=== PATIENT | male | born 1980 | race Caucasian/White ===

== ENCOUNTER 2020-02-04 16:39 | Emergency (ER) | payer OTHER, SELFPAY ==
[2020-02-04 16:53] VITALS: BP 156/88; PULSE 91; RESP 18; TEMP 36.6; O2SAT 98; BMI 37.3
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
[2020-02-04 18:07] VITALS: BP 156/88; PULSE 91; RESP 18; TEMP 36.6; O2SAT 98
== END 2020-02-04 18:08 | disposition home or self-care (01) ==
PROVIDERS: Emergency Provider Nurse Practitioner Family; PCP Internal Medicine
DX: S81.812A Laceration without foreign body, left lower leg, initial encounter (principal); Z23 Encounter for immunization; W31.2XXA Contact with powered woodworking and forming machines, initial encounter; Y92.017 Garden or yard in single-family (private) house as the place of occurrence of the external cause
CPT/HCPCS: 12002; 90471; 90714; 99201

== ENCOUNTER → 2020-02-07 09:47 | Outpatient (CLI) | payer OTHER, SELFPAY ==
[2020-02-07 10:51] LABS: Basophils % 0.4 % (0.1-2.0); Eosinophils # 0.2 K/mm3 (0.0-0.4); Eosinophils % 2.2 % (0.1-12.0); Hemoglobin 14.9 g/dL (14.1-18.0); Lymphocytes # 2.7 K/mm3 (0.7-4.5); Lymphocytes % 38.8 % (10-50); Mean Corpuscular HGB Conc 33.8 g/dL (31.8-35.4); Mean Corpuscular Volume 97.6 fl (80-94); Mean Platelet Volume 7.4 fl (7.4-10.4); Monocytes # 0.6 K/mm3 (0.1-1.0); Monocytes % 8.7 % (1.7-9.3); Neutrophils # 3.5 K/mm3 (1.8-7.8); Platelet Count 301 K/mm3 (142-424); Red Blood Count 4.51 M/mm3 (4.60-6.20)
[2020-02-07 11:38] LABS: Chloride 100 mmol/L (98-107); Sodium 140 mmol/L (136-145)
[2020-02-07 11:39] LABS: Potassium 4.6 mmoL/L (3.5-5.1)
[2020-02-07 11:41] LABS: Alanine Aminotransferase 59 U/L (12-78); Albumin Level 4.6 g/dl (3.5-5.0); Albumin/Globulin Ratio 1.4 (1.1-1.8); Alkaline Phosphatase 50 U/L (38-126); Anion Gap 15.6 mEq/L (5-15); Aspartate Amino Transferase 39 U/L (17-59); Bilirubin,Total 0.7 mg/dl (0.2-1.3); Blood Urea Nitrogen 20 mg/dl (9-20); Carbon Dioxide 29 mmol/L (22.0-30.0); Cholesterol 215 mg/dl (140-200); Estimated Glomerular Filt Rate 75 ml/min (>60); GFR (African American) 91 ML/MIN (>60); Globulin 3.2 g/dL (1.3-3.2); Total Protein,Serum 7.8 g/dl (6.3-8.2); Triglycerides 159 mg/dl (30-150); VLDL Cholesterol 32 mg/dL (0-40)
[2020-02-07 11:42] LABS: Calcium 9.5 mg/dl (8.4-10.2); Chol/HDL Ratio 4.9 (1-3.5); Glucose 100 mg/dl (74-100); HDL Cholesterol 44 mg/dl (40-60)
[2020-02-07 11:53] LABS: Direct LDL Cholesterol 142.43 mg/dL (100-129)
[2020-02-07 12:13] LABS: Thyroid Stimulating Hormone 1.01 uIU/mL (0.465-4.68)
== END ==
PROVIDERS: Visit Provider Family Medicine
DX: I10 Essential (primary) hypertension (principal)
CPT/HCPCS: 36415; 80053; 80061; 84443; 85025

== ENCOUNTER → 2020-02-11 15:18 | Outpatient (CLI) | payer OTHER, SELFPAY ==
[2020-02-13 10:55] LABS: Covid-19 Nasal PCR Sendout Lex Not Detected
== END ==
PROVIDERS: PCP Family Medicine; Visit Provider Family Medicine
DX: Z03.818 Encounter for observation for suspected exposure to other biological agents ruled out (principal)
CPT/HCPCS: U0004

== ENCOUNTER 2023-10-27 08:54 | Emergency (ER) | payer OTHER, SELFPAY ==
--- OUTSIDE RECORDS SUMMARY | 2023-10-27 09:00 | XMS_ITS ---
Author Organization [facility] Address [address] [place] [id number] Care Team Providers Care Disaster Recovery Specialist Name Role Phone Avinash Knight Primary Care Provider ALLERGIES No Known Allergies RESULTS Component Value Reference Range Notes P-Comprehensive Metabolic Pa trevon (CMP) Reviewed date:09/23/2023 12:32:32 PM Interpretation:alt 79, ast 49 Performing Lab: Notes/Report: Test performed by [facility] [address] [place] [address] , [address], [place] [address] Daniel Cuellar MD, Superintendent Quarry CLIA: [id number] Sodium 136 135-145 mEq/L Potassium 4.5 3.5-5.3 mEq/L Chloride 100 97-108 mEq/L CO2 22 22-32 mEq/L Glucose 85 65-99 mg/dL BUN 12 6-20 mg/dL Creatinine 1.01 0.70-1.30 mg/dL Calcium 9.5 8.6-10.4 mg/dL eGFR by Creatinine 96 >59 mL/min/1.73m2 Protein 8.1 6.0-8.3 g/dL Albumin 4.8 3.5-5.3 g/dL Alkaline Phosphatase 76 40-129 IU/L ALT (SGPT) 79 <5-55 IU/L AST (SGOT) 49 <5-46 IU/L Bilirubin, Total 0.8 <0.2-1.2 mg/dL A/G Ratio 1.5 1.1-2.5 mg/dL P-T4 Free (thyroxine) Reviewed date:09/23/2023 12:32:32 PM Interpretation:Normal Performing Lab: Notes/Report: Test performed by [facility], [address], [place] [address] Daniel Cuellar MD, Superintendent Quarry CLIA: [id number] Thyroxine Free (free T4) 1.14 0.86-1.76 ng/dL P-Lipid Panel Reviewed date:09/23/2023 12:32:32 PM Interpretation:chol 243, chol/hdl 5.28, non-hdl 197, ldl 170, ldl/hdl 3.7 Performing Lab: Notes/Report: Test performed by [facility], [facility] [address] [place] [address] [address], [place] [address] Daniel Cuellar MD, Superintendent Quarry CLIA: [id number] Cholesterol 243 <200 mg/dL Triglycerides 137 <150 mg/dL HDL Cholesterol 46 >39 mg/dL Cholesterol / HDL Ratio 5.28 0.00-4.99 Ratio Non-HDL Cholesterol 197 <130 mg/dL LDL Cholesterol (Calculation) 170 <130 mg/dL LDL Cholesterol Levels* Less than 100 mg/dL Optimal 100 to 129 mg/dL Near Optimal/ Above Optimal 130 to 159 mg/dL Borderline High 160 to 189 mg/dL High 190 mg/dL and above Very High * Categories as recommended by the 2004 ATPIII guidelines LDL/HDL Ratio 3.7 <3.3 Ratio LDL Cholesterol Patient History Test Date: 09/13/2023 LDL Results: 170 Units: mg/dL % Change: - P-TSH Reviewed date:09/23/2023 12:32:32 PM Interpretation:Normal Performing Lab: Notes/Report: Test performed by [facility], [facility] , [address], [place] [address] Daniel Cuellar MD, Superintendent Quarry CLIA: [id number] TSH 1.25 0.43-5.25 mU/L REASON FOR VISIT biometric physical MEDICATIONS Medication SIG (Take, Route, Frequency, Duration) Notes Start Date End Date Status Medrol DIRECTED P.O. *Please review and pick correct strength-formula tion from [employer] options. If intended option is not shown, discontinue and re-order from Quick Search* 04/11/2021 Not-Taking ZyrTEC Allergy 10 MG 1 tab(s) orally once a day 09/09/2020 Active Amoxicillin 875 MG 1 tab(s) orally every 12 hours for 10 day(s) 04/11/2021 Not-Taking Bisoprolol Fumarate 5 MG 1 tab(s) orally once a day for 90 days Active Methocarbamol 500 MG 2 tab(s) qid Not-Taking oxyCODONE HCl 5 MG for 3 N ot-Taking Enoxaparin Sodium 30 MG/0.3ML as directed subcutaneously every 12 hours for 10 day(s) 09/09/2020 Not-Taking Neurontin 100 MG 2 cap(s) 3 times a day Not-Taking PROBLEMS Problem Type ICD Code Onset Dates Problem Status W/U Status Risk SNOMED Code Notes Problem Thyroid nodule (E04.1) Active confirmed Thyroid nodule (000264881) Problem BMI 38.0-38.9,cheryl lt (Z68.38) Active confirmed Obese class II (604697143816 105) VITAL SIGNS Weight 287 lbs 09/13/2023 Blood pressure systolic 124 mm Hg 09/13/19 24 Blood pressure diastolic 86 mm Hg 024 Heart Rate 71 /min 09/13/2023 Height 72 in 09/13/2023 BMI 38.92 kg/m2 09/13/2023 Encounters Encounter Location Date Provider Diagnosis [facility] [address] [facility] [address] [place] [id number] 09/13/2023 R Raffi Knight Essential hypertensi on I10 ; Dyslipidemia E78.5 ; Thyroid nodule E04.1 ; BMI 38.0-38.9,adult Z68.38 ; Well adult exam Z00.00 and Encounter for biometric screening Z00.8 ASSESSMENTS Encounter Date Diagnosis Assessment Notes Treatment Notes Treatment Clinical Notes 09/13/2023 Essential hypertension (ICD-10 - I10) 09/13/2023 Dyslipidemia (ICD-10 - E78.5) 09/13/2023 Thyroid nodule (ICD-10 - E04.1) Check labs. He will obtain a formal copy of the thyroid ultrasound report from his employer to review. Will likely plan on repeat ultrasound in 6 months pending review of labs and ultrasound report. 09/13/2023 BMI 38.0-38.9,adult (ICD-10 - Z68.38) 09/13/2023 Well adult exam (ICD-10 - Z00.00) 09/13/2023 Encounter for biometric screening (ICD-10 - Z00.8) PLAN OF TREATMENT Medication Medication Name Sig Start Date Stop Date Notes Bisoprolol Fumarate 5 MG 1 tab(s) orally once a day for 90 days Treatment Notes Assessment Notes Thyroid nodule Check labs. He will obtain a formal copy of the thyroid ultrasound report from his employer to review. Will likely plan on repeat ultrasound in 6 months pending review of labs and ultrasound report. Next Appt Details Follow Up: 6 Months, Reason: Progress Notes * Examination Category Sub-Category Detail Notes General Examination HEENT: unremarkable Heart: RSR Lungs: clear to auscultatio n Extremities: no leg edema General Appearance: NAD Neurologic Exam: no focal deficits Neck: Neck is stocky but s upple with no thyroid masses palpable. No thyroid tenderness. Oral cavity: no lesions, mucosa m oist and WNL, no erythema Chest: normal shape and exp ansion History and Physical Notes * HPI (History of Present Illness) Category Sub-Category Detail Notes HPI Patient is here today for an samir ual physical and labs. Pt is fasting today
--- OUTSIDE RECORDS SUMMARY | 2023-10-27 09:00 | XMS_ITS ---
Author Organization [facility] Address [address] [facility] [address] [place] [id number] Care Team Providers Care Brick Paver Name Role Phone Avinash Knight Primary Care Provider [phone] REASON FOR VISIT Test results Encounters Encounter Location Date Provider Diagnosis [facility] [address] [facility] [address] [place] [id number] 09/23/2023 Avinash Knight PLAN OF TREATMENT No Information
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
--- OUTSIDE RECORDS SUMMARY | 2023-10-27 09:00 | XMS_ITS ---
Author Organization [facility] Address [address] [place] [id number] Care Team Providers Care Resident Inspector Name Role Phone Avinash Knight Primary Care Provider Rah Zaidi Unavailable [phone] ALLERGIES No Known Allergies REASON FOR VISIT bilateral ear pressure MEDICATIONS Medication SIG (Take, Route, Frequency, Duration) Notes Start Date End Date Status Bisoprolol Fumarate 5 MG 1 tab(s) orally once a day for 90 days Active ZyrTEC Allergy 10 MG 1 tab(s) orally onc e a day 09/09/2020 Active Fluticasone Propionate 50 MCG/ACT 1 spray in each nostril Nasally Once a day 10/16/2023 Active dexAMETHasone 2 MG 1 tablet Orally ever y 12 hrs for 5 day(s) 10/16/2023 Active PROBLEMS Problem Type ICD Code Onset Dates Problem Status W/U Status Risk SNOMED Code Notes Problem Allergic rhinitis, unspecified seasonality, unspecified trigger (J30.9) Active confirmed 15268336 VITAL SIGNS Weight 294 lbs 10/16/2023 Blood pressure systolic 122 mm Hg 10/16/19 24 Blood pressure diastolic 82 mm Hg 024 Heart Rate 73 /min 10/16/2023 Height 72 in 10/16/2023 BMI 39.87 kg/m2 10/16/2023 Encounters Encounter Location Date Provider Diagnosis [place] [address] [place] [id number] 10/16/2023 Rah Zaidi Otalgia of left ear H92.02 and Allergic rhinitis, unspecified seasonality, unspecified trigger J30.9 ASSESSMENTS Encounter Date Diagnosis Assessment Notes Treatment Notes Treatment Clinical Notes 10/16/2023 Otalgia of left ear (ICD-10 - H92.02) 10/16/2023 Allergic rhinitis, unspecified seasonality, unspecified trigger (ICD-10 - J30.9) PLAN OF TREATMENT Medication Medication Name Sig Start Date Stop Date Notes Fluticasone Propionate 50 MCG/ACT 1 spray in each nostril Nasally Once a day 10/16/2023 dexAMETHasone 2 MG 1 tablet Orally ever y 12 hrs for 5 day(s) 10/16/2023 Next Appt Details Follow Up: via phone to repo rt progress, Reason: Progress Notes * Examination Category Sub-Category Detail Notes ENT/Respiratory Oral cavity : no erythema or e xudate seen on pharynx Ears: auditory canals norm al bilaterally, TM's WNL Neck : no cervical lymphade nopathy Heart : RRR, normal S1 S2 Lungs: clear to auscultatio n bilaterally General Appearance: NAD Nose : nares patent, pale, edematous turbinates Eyes: PERRLA, sclera clear History and Physical Notes * HPI (History of Present Illness) Category Sub-Category Detail Notes ENT/respiratory ear stopped up Pt complains of bilateral ear pressure, states it feels like his ears are stopped up and hearing is muffled. Pt states pressure started last night and this morning he has some dizziness and feels light-headed
[2023-10-27 09:20] VITALS: BP 169/93; PULSE 84; RESP 18; TEMP 36.4; O2SAT 100; BMI 39.4
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
[2023-10-27 09:49] LABS: Microscopic, Urine URINE MICROSCOPIC (MICROSCOPIC)
[2023-10-27 09:57] LABS: Appearance,Urine CLEAR (Clear); Bilirubin,Urine Negative (Negative); Blood, Urine TRACE-I (Negative); Color,Urine YELLOW (Yellow); Glucose,Urine (UA) Negative (Negative); Ketones,Urine Negative (Negative); Leukocyte Esterase,Urine Negative (Negative); Nitrate,Urine Negative (Negative); Protein,Urine Negative (Negative); Specific Gravity, Urine <= 1.005 (1.005-1.030); Urobilinogen,Urine 0.2 EU/dl (0.2)
[2023-10-27 10:10] LABS: Squamous Epithelial Cell,Urine Occasional #/hpf (0-5)
[2023-10-27 10:13] VITALS: BP 169/93; PULSE 84; RESP 18; TEMP 36.4; O2SAT 100
[2023-10-27 11:13] LABS: HIV (1&2) Antibody Rapid NONREACTIVE (NONREACTIVE)
[2023-10-28 11:08] LABS: HBsAg Screen Negative (Negative); HCV Ab Non Reactive (Non Reactive); Hep A Ab, IGM Negative (Negative); Hep B Core Ab, IgM Negative (Negative)
[2023-10-29 21:37] LABS: Neisseria gonorrhoeae, NAA Negative (Negative)
[2023-10-30 23:29] LABS: HSV-1 DNA Negative (Negative); HSV-2 DNA Negative (Negative)
--- NOTE | 2023-10-31 12:32 | PC.NURSE ---
PATIENT NOTIFIED OF TEST RESULTS AT THIS TIME
== END 2023-10-27 10:16 | disposition home or self-care (01) ==
PROVIDERS: Emergency Provider Nurse Practitioner; PCP Family Medicine
DX: Z20.2 Contact with and (suspected) exposure to infections with a predominantly sexual mode of transmission (principal)
CPT/HCPCS: 80074; 81001; 87491; 87529; 87591; 99202; 99212; G0463

== ENCOUNTER 2023-12-12 07:18 | Outpatient (CLI) | payer OTHER, SELFPAY ==
--- OUTSIDE RECORDS SUMMARY | 2023-12-12 07:21 | XMS_ITS ---
[facility] Address [address] [facility] [address] [place] [phone] Care Team Providers Care Manager Drive Name Role Phone Avinash Knight Primary Care Provider REASON FOR VISIT Test results Encounters Encounter Location Date Provider Diagnosis [facility] [address] [facility] [address] [place] [id number] 11/05/2023 Avinash Knight PLAN OF TREATMENT No Information
--- OUTSIDE RECORDS SUMMARY | 2023-12-12 07:21 | XMS_ITS ---
[facility] Address [address] [place] [id number] Care Team Providers Care Petroleum Sampler Name Role Phone Avinash Knight Primary Care Provider [phone] ALLERGIES No Known Allergies REASON FOR VISIT f/u last week MEDICATIONS Medication SIG (Take, Route, Frequency, Duration) Notes Start Date End Date Status ALPRAZolam 0.5 MG 1 tablet Orally two times a day as needed for panic attacks 11/06/2023 Active traZODone HCl 50 MG 1 tablet at bedtime as needed Orally At Bed Time for 30 day(s) 11/06/2023 Active Bisoprolol Fumarate 5 MG 1 tab(s) orally once a day for 90 days Active Fluticasone Propionate 50 MCG/ACT 1 spray in each nostril Nasally Once a day 10/16/2023 Active PROBLEMS Problem Type ICD Code Onset Dates Problem Status W/U Status Risk SNOMED Code Notes Problem Anxiety disorder (F41.9) Active confirmed Anxiety disorder (745456574) Problem Panic attack (F41.0) Active confirmed Panic attack (498210806) VITAL SIGNS Weight 287.4 lbs 11/06/2023 Blood pressure systolic 116 mm Hg 11/06/19 24 Blood pressure diastolic 80 mm Hg 024 Heart Rate 85 /min 11/06/2023 Height 72 in 11/06/2023 BMI 38.97 kg/m2 11/06/2023 Encounters Encounter Location Date Provider Diagnosis [facility] [address] [place] [id number] 11/06/2023 Avinash Knight Anxiety disorder F41.9 and Panic attack F41.0 ASSESSMENTS Encounter Date Diagnosis Assessment Notes Treatment Notes Treatment Clinical Notes 11/06/2023 Anxiety disorder (ICD-10 - F41.9) 11/06/2023 Panic attack (ICD-10 - F41.0) PLAN OF TREATMENT Medication Medication Name Sig Start Date Stop Date Notes ALPRAZolam 0.5 MG 1 tablet Orally two times a day as needed for panic attacks 11/06/2023 traZODone HCl 50 MG 1 tablet at bedtime as needed Orally At Bed Time for 30 day(s) 11/06/2023 Next Appt Details Follow Up: 2 Weeks, Reason:
--- OUTSIDE RECORDS SUMMARY | 2023-12-12 07:21 | XMS_ITS ---
Author Organization [facility] Address [address] [place] [id number] Care Team Providers Care Director Traffic And Planning Name Role Phone Avinash Knight Primary Care Provider [phone] ALLERGIES No Known Allergies REASON FOR VISIT 2 weeks MEDICATIONS Medication SIG (Take, Route, Frequency, Duration) Notes Start Date End Date Status traZODone HCl 50 MG 1 tablet at bedtime as needed Orally At Bed Time for 30 day(s) Active Bisoprolol Fumarate 5 MG 1 tab(s) orally once a day for 90 days Active Fluticasone Propionate 50 MCG/ACT 1 spray in each nostril Nasally Once a day 10/16/2023 Active ALPRAZolam 0.5 MG 1 tablet Orally two times a day as needed for panic attacks 11/06/2023 Active VITAL SIGNS Weight 285 lbs 11/20/2023 Blood pressure systolic 128 mm Hg 11/20/19 24 Blood pressure diastolic 76 mm Hg 024 Heart Rate 64 /min 11/20/2023 Height 72 in 11/20/2023 BMI 38.65 kg/m2 11/20/2023 Encounters Encounter Location Date Provider Diagnosis [facility] [address] [place] [id number] 11/20/2023 Avinash Knight Anxiety disorder F41.9 and Exposure to STD Z20.2 ASSESSMENTS Encounter Date Diagnosis Assessment Notes Treatment Notes Treatment Clinical Notes 11/20/2023 Anxiety disorder (ICD-10 - F41.9) 11/20/2023 Exposure to STD (ICD-10 - Z20.2) He will obtain repeat test in 4 weeks PLAN OF TREATMENT Medication Medication Name Sig Start Date Stop Date Notes traZODone HCl 50 MG 1 tablet at bedtime as needed Orally At Bed Time for 30 day(s) Treatment Notes Assessment Notes Exposure to STD He will obtain repea t test in 4 weeks Pending Test Test Name Order Date H-HIV Panel 11/20/2023 Next Appt Details Follow Up: via phone to repo rt test results, Reason: Progress Notes * Examination Category Sub-Category Detail Notes Psychology Heart: RSR Lungs: clear to auscultatio n General Appearance: NAD Grooming : neat Mood : calm
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
[2023-12-12 09:05] LABS: HIV (1&2) Antibody Rapid NONREACTIVE (NONREACTIVE)
== END 2023-12-12 23:59 | disposition home or self-care (01) ==
LOC: LAB 07:19
PROVIDERS: PCP Family Medicine; Visit Provider Family Medicine
DX: Z20.2 Contact with and (suspected) exposure to infections with a predominantly sexual mode of transmission (principal)
CPT/HCPCS: 36415; 87389

== ENCOUNTER 2024-02-20 07:51 | Outpatient (CLI) | payer OTHER, SELFPAY ==
--- NOTE | 2024-02-20 07:52 | MR_ITS ---
FINAL REPORT TECHNIQUE: Multiplanar and multisequence imaging of the brain was obtained before and after contrast administration. CLINICAL HISTORY: PARESTHESIAS / RAYNAUD S whole body burning starts in mouth and ends in legs inner ear problems and muscle spasms 25 ml prohance FINDINGS: The gyri and sulci are within normal limits for age. There is no mass effect or midline shift. Signal intensity is normal. No hydrocephalus. The cerebellum and brainstem have an unremarkable appearance. There are no areas of restricted diffusion on diffusion weighted images to suggest acute infarct. Soft tissues are without acute abnormality. No pathologic contrast enhancement is identified. IMPRESSION: No acute intracranial abnormality and no pathologic contrast enhancement. Reviewed, Interpreted and Dictated by Cami Santana MD Transcribed by Melba Hampton Authenticated and . [facility]
[2024-02-20] MEDS: SODIUM CHLORIDE 0.9% 10ML SYR (RAD ONLY) 10 ML IV (08:56)
[2024-02-20] MEDS: GADOTERIDOL INJ 10ML SYRINGE 5 ML IV (08:56)
[2024-02-20] MEDS: GADOTERIDOL INJ 20ML SYRINGE 20 ML IV (08:56)
== END 2024-02-20 23:59 | disposition home or self-care (01) ==
LOC: RAD 07:51
PROVIDERS: PCP Family Medicine; Visit Provider Family Medicine
DX: I73.00 Raynaud's syndrome without gangrene (principal); R20.2 Paresthesia of skin
CPT/HCPCS: 70553; A9576

== ENCOUNTER 2024-03-07 15:15 | Outpatient (CLI) | payer OTHER, SELFPAY ==
--- NOTE | 2024-03-07 | US_ITS ---
FINAL REPORT CLINICAL HISTORY: THYROID NODULE COMPARISON: None FINDINGS: Sonographic images of the thyroid gland were obtained. The right thyroid lobe measures 51 mm. in length. The left thyroid lobe measures 42 mm. in length. The thyroid isthmus measures 4 mm. The echogenicity is normal. Several thyroid nodules are noted with the largest nodule on the left measuring 14 x 14 x 12 mm. This nodule is solid, isoechoic, TI-RADS 3. Several other smaller nodules are noted. IMPRESSION: Dominant left thyroid nodule that is solid, isoechoic, TI-RADS 3. Recommend follow-up in 6 to 12 months. Reviewed, Interpreted and Dictated by Rico Landin III, MD Transcribed by Kassi Waters Authenticated and [facility]
== END 2024-03-07 23:59 | disposition home or self-care (01) ==
LOC: RAD 15:16
PROVIDERS: PCP Family Medicine; Visit Provider Family Medicine
DX: E04.1 Nontoxic single thyroid nodule (principal)
CPT/HCPCS: 76536

== ENCOUNTER 2024-10-03 15:33 | Outpatient (CLI) | payer OTHER, SELFPAY ==
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
--- OUTSIDE RECORDS SUMMARY | 2024-10-02 13:27 | XMS_ITS ---
Author [facility] Address [address] [place] [id number] Care Team Providers Care Biological Sciences Professor Name Role Phone Avinash Knight Primary Care Provider REASON FOR VISIT Test Results* Encounters Encounter Location Date Provider Diagnosis [facility] [address] [place] [id number] 10/02/2024 Avinash Knight Elevated liver enzymes R74.8 Assessments Encounter Date Diagnosis (ICD Code) Assessment Notes Treatment Notes Treatment Clinical Notes Section Notes 10/02/2024 Elevated liver enzymes (ICD-10 - R74.8) Plan Of Treatment Pending Test Test Name Order Date Ultrasound : Right Upper Quadrant 2024 Progress Notes * KAIT ONEALDOB:1980 (43 yo M)Acc No.[id number]:10/02/2024 Patient: KAIT FOX CATY :1980 A ge:43 Y S ex:Male Address:[address] [place] [address] [place] [address] Subjective: * Chief Complaints: * T est Results* * Medical History: * Surgical History: * Hospitalization/Major Diagno stic Procedure: * Medications: Objective: * Vitals: * Physical Examination: Assessment: * Assessment: 1. E levated liver enzymes - R74.8 Plan: * Treatment: * Procedure Codes: * true * Date: Generated for Printi ng/Faxing/eTransmitting on: 0 10/03/2024 03:36 PM EDT
--- OUTSIDE RECORDS SUMMARY | 2024-10-03 15:35 | XMS_ITS | Referral Summary ---
Author Organization [facility] ([place], [place], [place], [place]) Address [address] [place] [address] Care Team Providers Care Slip Cover Sewer Name Role Phone Skip Knight MD Primary Care Provider +1- [phone] Allergies No known active allergies Medications bisoprolol (ZEBETA) 5 MG tablet Take 5 mg by mouth daily. Active cetirizine (ZyrTEC) 10 MG tablet Take 10 mg by mouth daily. Active Social History Tobacco Use Types Packs/Day Years Used Date Smoking Tobacco: Never Smokeless Tobacco: Current Snuff Alcohol Use Standard Drinks/Week Comments Yes 7 (1 standard drink = 0.6 oz pur e alcohol) Family and Community Support Answer Sandeep e Recorded Help with Day to Day Activities Not on file 04/06/2023 Feeling Lonely or Isolated Not on file 04/06 Educational Attainment Answer Date Feroz rded Speak language other than Jamaican at home Not on file 04/06/2023 Want help with school or training Not on file 04/06/2023 Substance Use Answer Date Recorded Used prescription meds for non-medical reasons N ot on file 04/06/2023 Used illegal drugs past 12 months Not on file 04/06/2023 Sex and Gender Information Value Date Recorded Sex Assigned at Not on file 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 Gender Identity Not on file Sexual Orientation Not on file Last Filed Vital Signs Vital Sign Reading Time Taken Comments Blood Pressure 162/97 11/02/2023 8:49 AM EDT Pulse 93 11/02/2023 8:49 AM EDT Temperature 36.7 C (98 F) 11/02/2023 8:49 AM EDT Respiratory Rate 20 11/02/2023 8:49 AM EDT Oxygen Saturation 98% 11/02/2023 8:49 AM EDT Inhaled Oxygen Concentration - - Weight 129.3 kg (285 lb) 11/02/2023 8:49 AM EDT Height 182.9 cm (6') 11/02/2023 8:49 AM EDT Body Mass Index 38.65 11/02/2023 8:49 AM EDT Plan of Treatment Not on file Insurance [facility] CHOICE PLUS Care Teams Slip Cover Sewer Relationship Specialty Start Date End Date Skip Knight MD [address] [facility] [address] [place] [id number] PCP - General Family Medicine 11/02/23
--- OUTSIDE RECORDS SUMMARY | 2024-10-03 15:36 | XMS_ITS | Clinical Summary ---
Author Organization [email or web address] ([place], [place], [place], [place]) Address [address] [place] [address] Care Team Providers Care Securities Supervisor Name Role Phone Skip Knight MD Primary Care Provider +1- [phone] Allergies No known active allergies Medications bisoprolol [...] Date Feroz rded Speak language other than Ghanaian at home Not on file 04/06/2023 Want help with school or training Not on file 04/06/2023 Substance Use Answer Date Recorded Used prescription meds for non-medical reasons N ot on file 04/06/2023 Used illegal drugs past 12 months Not on file 04/06/2023 Sex and Gender Information Value Date Recorded Sex Assigned at Not on file 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 Gender Identity Not on file Sexual Orientation [...] 11/02/2023 8:49 AM EDT Plan of Treatment Health Maintenance Due Date Last Done Comments Depression Screening (12+) 1994 Tobacco Cessation Counseling and Screening (12+) 1994 HIV Screening 1997 Hepatitis C Screening 2000 Lipid Panel 2017 COVID-19 VACCINE (2023-2 5 season) 2023 03/14/2021, 06/24/2020, 05/27/2020 Influenza Vaccine (#1) 2024 DTAP/TDAP/TD VACCINES (3 - T d or Tdap) 02/03/2030 02/04/2020, 12/01/2014 Pneumococcal Vaccine: 0-49 Years Aged Out No longer eligible b ased on patient's age to complete this topic Insurance [place] [id number] [facility] CHO[facility] PL[facility] Care Teams Securities Supervisor Relationship Specialty Start Date End Date Skip Knight MD [address] [facility] [address] [place] [id number] PCP - General Family Medicine 8/9/24
--- OUTSIDE RECORDS SUMMARY | 2024-10-03 15:37 | XMS_ITS | Encounter Summary ---
Author Organization Healthcare Address [address] [place] [address] Care Team Providers Care Offset Plate Preparation Supervisor Name Role Phone Skip Knight MD Primary Care Provider +1- [phone] Reason for Visit * Reason Onset Date Comments Med Refill 09/29/2020 Encounter Details Date Type Department Care Team (Late st Contact Info) Description 09/29/2020 [facility]ill [facility] [address] [place] [address] Colin Adams MD [address] [place] [address] Social History Tobacco Use Types Packs/Day Years Used Date Smoking Tobacco: Never Smokeless Tobacco: Former Snuff Alcohol Use Standard Drinks/Week Comments Not Currently 88 (1 standard drink = 0.6 oz pu re alcohol) Sex and Gender Information Value Date Recorded Sex Assigned at Not on file Legal Sex Male 6:26 PM EDT Gender Identity Not on file Sexual Orientation Not on file COVID-19 Exposure Response Date Recorded In the last month, have you been in contact with someone who was confirmed or suspected to have Coronavirus / COVID-19? No / Unsure 09/22/2020 9:23 AM EDT documented as of this encounter Miscellaneous Notes * Telephone Encounter - Colin Adams MD - 10/22/2020 11:11 AM EDT Approving, but needs appt for additional refills. * Telephone Encounter - Dayan Arreola - 09/29/2020 4:13 PM EDT Medication Refill Request Medication Name & Dosage: Pt's is calling concerning a renewal for Gabapentin. She stated it was supposed to be increased but hasn't been called in yet. Preferred Pharmacy & Location: [facility] Days of medication remaining (if under 3 days please manuelito as urgent): Best contact number and optimal time of day to reach caller: Additional comments/information from caller: [phone] Note: Please do not reply to this message. Follow-up communication and further actions as a result of this message need to be communicated with the patient directly, if the patient is not active onMyChart. If the patient is active on MyChart, they will receive notification of the communication/outcome via [employer]. documented in this encounter Plan of Treatment Not on file documented as of this encounter Visit Diagnoses Not on filedocumented in this encounter Additional Health Concerns Assessment Noted Time A fall risk assessment has been complete d for the patient 09/22/2020 9:59 AM EDT documented as of this encounter Care Teams Offset Plate Preparation Supervisor Relationship Specialty Start Date End Date Skip Knight MD [address] [place] [address] PCP - General 09/22/20 documented as of this encounter
--- OUTSIDE RECORDS SUMMARY | 2024-10-03 15:37 | XMS_ITS | Data Portability ---
Author Organization [facility] WENDY Austin TIGRETT CLOSED Address [address] [place] [address] Care Team Providers Care Panelboard Assembler Name Role Phone ADRIANA ADEN Primary Care Provider KRYSTAL LORENZO Neurologist Assessment Encounter Date Assessment Date Assessment LastModified by Organization Details LastModified Time 01/16/2024 01/16/2024 1. For anxiety, patient to continue Wellbutrin XL 150 mg daily as the current dose is appropriate. 2. Diet, regular exercise, and weight loss were encouraged at this office visit. 3. Patient to continue his medications as previously prescribed as the current doses are appropriate. 4. Labs today: Iron, TIBC, ferritin, vitamin B12, folate. 5. Patient to keep his appointment on 03/17/2024 for neurology evaluation of numbness and dysesthesias. 6. Patient also has an appointment on 04/01/24 for neurology evaluation of numbness and dysesthesias with a neurologist in [place], [place]. 7. Patient will be referred for infectious disease evaluation for previous blood exposure and sexual encounter. 8. Patient to to keep his appointment on 02/11/2020 to recheck his anxiety with treatment. At that time, his anemia can be rechecked. [email or web address] Not available 01/16/2024 11:17:01 Plan of Treatment Reminders Order Date Submit Date Provider Last Modified By Organization Details Last Modified Time Details Appointments None recorded. Lab aldolase, serum 2023 024 [facility], [address] [place] [address], [place], [address], 4 01:00:24 CK (creatine kinase), total, serum 2023 [facility], [address] [place] [address], [address], 4 14:45:18 vitamin B1 (thiamine) , blood 2023 [facility], [address] [place] [address], [address], 4 07:42:04 copper, serum or plasma 2023 [facility], [address] [place] [address], [address], 4 16:43:19 vitamin B6 (pyridoxin e), plasma 2023 [facility], [address] [place] [address], [address], 4 09:42:30 protein electropho resis panel, serum or plasma 2023 [facility], [address] [place] [address], [address], 4 09:44:59 iron + total iron-newton ng capacity (TIBC), serum 2023 024 [facility], [address] [place] [address], [address], 4 16:26:29 ferritin, serum or plasma 2023 024 [facility], [address] [place] [address], [address], 4 16:26:27 vitamin B12 + folate, serum or blood 2023 024 [facility], [address] [place] [address], [address], 4 16:05:17 Referral infectious disease specialist referral 2023 024 [email or web address] [facility], [address], [place], [address], 4 10:04:11 Procedures nerve conduction study/EMG, upper extremity (PROC) 2023 024 [email or web address] Krystal Lorenzo , [address] [place], [address], 5 08:38:06 nerve conduction study/EMG, lower extremity (PROC) 2023 024 [email or web address] Krystal Lorenzo , [address] [place], [address], 5 08:38:06 Surgeries None recorded. Imaging None recorded. Medication Orders None recorded. Patient TargetsNo targets recorded. Patient Instructions Encounter Date Encounter Id Patient Instructions Last Modified By Organization Details Last Modified Time 01/16/2024 [id number] seasonal allergies: care instructions [email or web address] Not available 01/16/2024 10:39:03 When You Want to Lose Weight: Care Instructions [email or web address] Not available 01/16/2024 10:39:03 high cholesterol : care instructions [email or web address] Not available 01/16/2024 10:39:04 Reason for Referral Infectious Disease Specialis t Referral for Exposure to blood and/or body fluid Referring Physician: Lesa Cook, Internal Medicine, Encounter Date: 01/16/2024 Results Created Date Observation Date Name Description Value Unit Range Abnormal Flag Note LastModifiedBy Organization Detail LastModifiedTime 01/14/2001/14/2024 COMPL ETE BLOOD COUNT white blood cells 7.4 10*3/ uL 3.8-10 .8 normal Not Available [facility] [address] [place], [address], 01/14/2024 18:30:16 01/14/2001/14/2024 COMPL ETE BLOOD COUNT red blood cells 4.16 10*6/ uL 4.20-5 .80 low Not Available [facility] [address] [place] [address], [address], 01/14/2024 18:30:16 01/14/20 24 01/14/2024 COMPL ETE BLOOD COUNT hemoglobin 13.4 g/dL 14.0-1 8.0 low Not Available [facility] [address] [place] [address], [address], 01/14/2024 18:30:16 01/14/20 24 01/14/2024 COMPL ETE BLOOD COUNT hematocrit 39.6 % 40.0-5 2.0 low Not Available [facility] [address] [place] [address], [address], 01/14/2024 18:30:16 01/14/20 24 01/14/2024 COMPL ETE BLOOD COUNT MCV 95 fL 80-100 normal Not Available [facility] [address] [place] [address], [address], 01/14/2024 18:30:16 01/14/20 24 01/14/2024 COMPL ETE BLOOD COUNT MCH 32 pg 26-35 normal Not Available [facility] [address] [place] [address], [address], 01/14/2024 18:30:16 01/14/20 24 01/14/2024 COMPL ETE BLOOD COUNT MCHC 34 g/dL 32-36 normal Not Available [facility] [address] [place] [address], [address], 01/14/2024 18:30:16 01/14/20 24 01/14/2024 COMPL ETE BLOOD COUNT RDW 12.7 % 11.0-1 5.0 normal Not Available [facility] [address] [place] [address], [address], 01/14/2024 18:30:16 01/14/20 24 01/14/2024 COMPL ETE BLOOD COUNT MPV 8.3 fL 6.2-10 .5 normal Not Available [facility] [address] [place] [address], [address], 01/14/2024 18:30:16 01/14/20 24 01/14/2024 COMPL ETE BLOOD COUNT platelet count 264 10*3/ uL 150-40 0 normal Not Available [facility] [address] [place] [address], [address], 01/14/2024 18:30:16 01/14/20 24 01/14/2024 COMPL ETE BLOOD COUNT neutrophil,a bsolute 3.9 10*3/ uL 1.6-8. 4 normal Not Available [facility] [address] [place] [address], [address], 01/14/2024 18:30:16 01/14/20 24 01/14/2024 COMPL ETE BLOOD COUNT lymphocyte,a bsolute 2.5 10*3/ uL 0.4-5. 1 normal Not Available [facility] [address] [place] [address], [address], 01/14/2024 18:30:16 01/14/20 24 01/14/2024 COMPL ETE BLOOD COUNT monocyte,abs olute 0.7 10*3/ uL 0.0-1. 2 normal Not Available [facility] [address] [place] [address], [address], 01/14/2024 18:30:16 01/14/20 24 01/14/2024 COMPL ETE BLOOD COUNT eosinophil,a bsolute 0.2 10*3/ uL 0.0-0. 8 normal Not Available [facility] [address] [place] [address], [address], 01/14/2024 18:30:16 01/14/20 24 01/14/2024 COMPL ETE BLOOD COUNT basophil,abs olute 0.1 10*3/ uL 0.0-0. 3 normal Not Available [facility] [address] [place] [address], [address], 01/14/2024 18:30:16 01/14/20 24 01/14/2024 COMPL ETE BLOOD COUNT % neutrophils 52.7 % 42.0-7 8.0 normal Not Available [facility] [address] [place] [address], [address], 01/14/2024 18:30:16 01/14/20 24 01/14/2024 COMPL ETE BLOOD COUNT % lymphocytes 34.0 % 11.0-4 7.0 normal Not Available [facility] [address] [place] [address], [address], 01/14/2024 18:30:16 01/14/20 24 01/14/2024 COMPL ETE BLOOD COUNT % monocytes 10.0 % 0.0-11 .0 normal Not Available [facility] [address] [place] [address], [address], 01/14/2024 18:30:16 01/14/20 24 01/14/2024 COMPL ETE BLOOD COUNT % eosinophils 2.4 % 0.0-7. 0 normal Not Available [facility] [address] [place] [address], [address], 01/14/2024 18:30:16 01/14/20 24 01/14/2024 COMPL ETE BLOOD COUNT % basophils 0.9 % 0.0-3. 0 normal Not Available [facility] [address] [place] [address], [address], 01/14/2024 18:30:16 01/14/20 24 01/14/2024 COMPL ETE BLOOD COUNT nucleated red cells 0.0 % 0.0-0. 9 normal Not Available [facility] [address] [place] [address], [address], 01/14/2024 18:30:16 01/14/20 24 01/14/2024 COMPL ETE BLOOD COUNT nucleated RBCs, absolute 0.00 10*3/ uL not estab. normal Not Available [facility] [address] [place], [address], 01/14/2024 18:30:16 01/14/20 24 01/14/2024 LIPID PROFI LE HDL cholesterol 40 mg/dL 40-242 normal Not Available [facility] [address] [place], [address], 01/14/2024 18:33:57 01/14/2001/14/2024 LIPID PROFI LE triglyceride s 171 mg/dL 0-149 high TRIGL YCERI DE RANGE S HUGO L: < 150 BORDE RLINE HIGH: 150 - 199 HIGH: 200 - 499 VERY HIGH: > OR = 500 Not Available [facility] [address] [place], [address], 01/14/2024 18:33:57 01/14/20 24 01/14/2024 LIPID PROFI LE cholesterol 213 mg/dL 0-199 high MANPREET STERO L (TOTA L) RANGE S PEDRITO ABLE: < 200 BORDE RLINE : 200 - 239 HIGHE R RISK: > 239 Not Available [facility] [address] [place], [address], 01/14/2024 18:33:57 01/14/20 24 01/14/2024 LIPID PROFI LE LDL cholesterol 139 mg/dL _(sofy c) 0-99 high LDL MANPREET STERO L RANGE S OPTIM AL: < 100 NEAR/ ABOVE OPTIM AL: 100 - 129 BORDE RLINE HIGH: 130 - 159 HIGH: 160 - 189 VERY HIGH: > OR = 190 Not Available [facility] [address] [place], [address], 01/14/2024 18:33:57 01/14/20 24 01/14/2024 COMP. METAB OLIC PANEL glucose 105 mg/dL 74-100 high Not Available [facility] [address] [place], [address], 01/14/2024 18:34:00 01/14/20 24 01/14/2024 COMP. METAB OLIC PANEL blood urea nitrogen 15 mg/dL 6-20 normal Not Available [facility] [address] [place] [address], [address], 01/14/2024 18:34:00 01/14/20 24 01/14/2024 COMP. METAB OLIC PANEL creatinine 1.04 mg/dL 0.70-1 .28 normal Not Available [facility] [address] [place] [address], [address], 01/14/2024 18:34:00 01/14/20 24 01/14/2024 COMP. METAB OLIC PANEL BUN/creatini ne ratio 14 (calc ) 10-20 normal Not Available [facility] [address] [place] [address], [address], 01/14/2024 18:34:00 01/14/20 24 01/14/2024 COMP. METAB OLIC PANEL sodium 137 mmol/ L 136-14 5 normal Not Available [facility] [address] [place] [address], [address], 01/14/2024 18:34:00 01/14/20 24 01/14/2024 COMP. METAB OLIC PANEL potassium 3.9 mmol/ L 3.4-5. 0 normal Not Available [facility] [address] [place] [address], [address], 01/14/2024 18:34:00 01/14/20 24 01/14/2024 COMP. METAB OLIC PANEL chloride 101 mmol/ L 98-107 normal Not Available [facility] [address] [place] [address], [address], 01/14/2024 18:34:00 01/14/20 24 01/14/2024 COMP. METAB OLIC PANEL carbon dioxide 23 mmol/ L 22-31 normal Not Available [facility] [address] [place] [address], [address], 01/14/2024 18:34:00 01/14/20 24 01/14/2024 COMP. METAB OLIC PANEL anion gap 13 (calc ) 7-25 normal Not Available [facility] [address] [place] [address], [address], 01/14/2024 18:34:00 01/14/20 24 01/14/2024 COMP. METAB OLIC PANEL calcium 9.6 mg/dL 8.6-10 .2 normal Not Available [facility] [address] [place] [address], [address], 01/14/2024 18:34:00 01/14/20 24 01/14/2024 COMP. METAB OLIC PANEL total protein 8.0 g/dL 6.4-8. 3 normal Not Available [facility] [address] [place] [address], [address], 01/14/2024 18:34:00 01/14/20 24 01/14/2024 COMP. METAB OLIC PANEL albumin 4.6 g/dL 3.5-5. 2 normal Not Available [facility] [address] [place] [address], [address], 01/14/2024 18:34:00 01/14/20 24 01/14/2024 COMP. METAB OLIC PANEL globulin 3.4 1.5-4. 5 normal Not Available [facility] [address] [place] [address], [address], 01/14/2024 18:34:00 01/14/20 24 01/14/2024 COMP. METAB OLIC PANEL albumin/glob ulin ratio 1.4 (calc ) 1.1-2. 5 normal Not Available [facility] [address] [place] [address], [address], 01/14/2024 18:34:00 01/14/20 24 01/14/2024 COMP. METAB OLIC PANEL bilirubin, total 0.7 mg/dL 0.1-1. 2 normal Not Available [facility] [address] [place], [address], 01/14/2024 18:34:00 01/14/20 24 01/14/2024 COMP. METAB OLIC PANEL alkaline phosphatase 67 U/L 40-129 normal Not Available [facility] [address] [place], [address], 01/14/2024 18:34:00 01/14/20 24 01/14/2024 COMP. METAB OLIC PANEL AST 30 U/L 0-40 normal Not Available [facility] [address] [place], [address], 01/14/2024 18:34:00 01/14/20 24 01/14/2024 COMP. METAB OLIC PANEL ALT 40 U/L 0-41 normal Not Available [facility] [address] [place], [address], 01/14/2024 18:34:00 01/14/20 24 01/14/2024 COMP. METAB OLIC PANEL GFR 92 >= 60 normal NOT E New calcu latio n for GFR (CKD- EPI 2020) is formu lated witho ut race adjus tment facto rs at the recom menda tion of the [facility] and Luisana pollard [facility] . This calcu latio n has not been valid ated in pregn ant women . For pedia tric patie nts refer to https ://micky ahmadi.abby cornell.o rg/pr aimee nieto s/KDO QI/gf r_cal culat orPed Not Available [facility] [address] [place], [address], 01/14/2024 18:34:00 01/14/20 24 01/14/2024 TSH TSH 0.835 u[IU] /mL 0.270- 4.200 normal Not Available [facility] [address] [place], [address], 01/14/2024 18:45:38 01/16/20 24 01/16/2024 B12/F OLIC ACID PANEL folic acid 8.0 NG/mL 4.6-34 .8 normal Not Available [facility] [address] [place] [address], [address], 01/16/2024 16:05:17 01/16/20 24 01/16/2024 B12/F OLIC ACID PANEL vitamin B12 406 pg/mL 232-12 45 normal Not Available [facility] [address] [place] [address], [address], 01/16/2024 16:05:17 01/16/20 24 01/16/2024 BEV TIN ferritin 134 NG/mL 30-400 normal Not Available [facility] [address] [place] [address], [address], 01/16/2024 16:26:27 01/16/20 24 01/16/2024 IRON PANEL -TOTA L AND TIBC iron 74 ug/dL 59-158 normal Not Available [facility] [address] [place] [address], [address], 01/16/2024 16:26:29 01/16/20 24 01/16/2024 IRON PANEL -TOTA L AND TIBC total iron binding cap. 336 ug/dL _(sofy c) 250-45 0 normal Not Available [facility] [address] [place] [address], [address], 01/16/2024 16:26:29 01/16/20 24 01/16/2024 IRON PANEL -TOTA L AND TIBC unsat.iron binding cap. 262 ug/dL 112-34 7 normal Not Available [facility] [address] [place] [address], [address], 01/16/2024 16:26:29 01/16/20 24 01/16/2024 IRON PANEL -TOTA L AND TIBC % saturation 22 %_(ca lc) 20-50 normal Not Available [facility] [address] [place], [address], 01/16/2024 16:26:29 03/17/20 24 03/17/2024 CREAT INE KINAS E creatine kinase 285 U/L 0-189 high Not Available [facility] [address] [place], [address], 03/17/2024 14:45:18 03/17/20 24 03/18/2024 ALDOL ASE aldolase 5.0 U/L < or = 8.1 normal Not Available [facility] [address] [place], [address], 03/19/2024 01:00:23 03/17/20 24 03/19/2024 PROTE IN ELECT ROPHO RESIS , SERUM protein, total 8.4 g/dL 6.1-8. 1 high Not Available [facility] [address] [place] [address], [address], 03/21/2024 10:45:04 03/17/20 24 03/21/2024 PROTE IN ELECT ROPHO RESIS , SERUM albumin 5.0 g/dL 3.8-4. 8 high Not Available [facility] [address] [place] [address], [address], 03/21/2024 10:45:04 03/17/20 24 03/21/2024 PROTE IN ELECT ROPHO RESIS , SERUM dgpld-5-ujqx ulin 0.3 g/dL 0.2-0. 3 normal Not Available [facility] [address] [place] [address], [address], 03/21/2024 10:45:04 03/17/20 24 03/21/2024 PROTE IN ELECT ROPHO RESIS , SERUM vofxb-1-ktbw ulin 0.6 g/dL 0.5-0. 9 normal Not Available [facility] [address] [place] [address], [address], 03/21/2024 10:45:04 03/17/20 24 03/21/2024 [facility] beta 1 globulin 0.5 g/dL 0.4-0. 6 normal Not Available [facility] [address] [place], [address], 03/21/2024 10:45:04 03/17/20 24 03/21/2024 PROTE IN ELECT [facility] RESIS , SERUM beta 2 globulin 0.5 g/dL 0.2-0. 5 normal Not Available [facility] [address] [place], [address], 03/21/2024 10:45:04 03/17/20 24 03/21/2024 PROTE IN ELECT [facility] RESIS , SERUM gamma globulin 1.5 g/dL 0.8-1. 7 normal Not Available [facility] [address] [place], [address], 03/21/2024 10:45:04 03/17/20 24 03/21/2024 PROTE IN ELECT [facility] RESIS , SERUM interpretati on SEE NOTE normal No restr icted band (M-sp anna) seen. Not Available [facility] [address] [place], [address], 03/21/2024 10:45:04 03/17/20 24 03/20/2024 COPPE R, PLASM A copper, plasma 84 mcg/d L 70-175 normal This test was devel oped and its katie tical perfo rmanc e abebe cteri stics have been deter mined by [facility]. It has not been clear ed or appro sandra by the FDA. This assay has been valid ated pursu ant to the CLIA regul ation s and is used for clini sofy purpo ses. Not Available [facility] [address] [place], [address], 03/20/2024 16:43:19 03/17/20 24 03/22/2024 VITAM IN B1 vitamin B1 18 nmol/ L 8-30 normal (Note ) Vitam in suppl ement ation withi n 24 hours prior to blood draw may affec t the accur acy of the resul ts. This test was devel oped and its katie tical perfo rmanc e abebe cteri stics have been deter mined by [facility]. It has not been clear ed or appro sandra by FDA. This assay has been valid ated pursu ant to the CLIA regul ation s and is used for clini sofy purpo ses. [facility] med fusio n [address] [facility] [address] [place] [address] [phone] Luis Miguel Taylor MD, PhD Not Available [facility] [address] [place] [address], [address], 03/22/2024 07:42:04 03/17/20 24 03/22/2024 VITAM IN B6 vitamin B6 22.0 NG/mL 2.1-21 .7 high (Note ) Vitam in suppl ement ation withi n 24 hours prior to blood draw may affec t the accur acy of resul ts. This test was devel oped and its katie tical perfo rmanc e abebe cteri stics have been deter mined by [facility]. It has not been clear ed or appro sandra by the FDA. This assay has been valid ated pursu ant to the CLIA regul ation s and is used for clini sofy purpo ses. [facility] med fusio n [address] [facility] [address] [place] [address] [phone] Luis Miguel Taylor MD, PhD Not Available [facility] [place], [address], 03/22/2024 09:42:30 04/28/19 25 04/28/2024 nerve condu ction study /EMG, lower extre mity (PROC ) No observ ation record ed. [email or web address] Krystal Davenport Lorenzo DO [address] [place], [address], 04/29/2024 12:21:50 05/13/19 25 05/13/2024 nerve condu ction study /EMG, upper extre mity (PROC ) No observ ation record ed. [email or web address] Krystal Lorenzo DO [address] [place], [address], 05/13/2024 12:34:05 Result Notes None recorded. Problems Name Problem SNOMED Code Status Onset Date Resolution Date Notes Provider Name and Address Organization Details Recorded Time Seasonal allergy 222228525 Active 2016 LESA COOK MD [address] [place] [address], [address], [facility] 7 10:50:42 Hyperlipidemia 94440900 Active 2016 LESA COOK MD [address] [place] [address], [address], [facility] 7 10:50:51 Liver enzymes level above reference range 506334857 Active 2017 LESA COOK MD [address] [place] [address], [address], [facility] 8 08:21:05 Obesity 722613067 Active 2017 LESA COOK MD [address] [place] [address], [address], [facility] 8 09:39:15 Anxiety 36197547 Active 2023 LESA COOK MD [address] [place] [address], [address], [facility] 4 15:48:25 Insomnia 462733964 Active 2023 LESA COOK MD [address] [place] [address], [address], [facility] 4 15:48:27 Hypertensive disorder 99244036 Active 2023 LESA COOK MD [address] [place] [address], [address], [facility] 4 15:48:28 Anemia 015288304 Active 2023 LESA COOK MD [address] [place], [address], [facility] 07:56:53 Problem Notes None recorded. Procedures Surgical History Date Name Laterality Status Provider Name and Address Organization Details Recorded Time 05/13/19 25 Electromyography (EMG) with Nerve Conduction Study (NCV) completed Gibson (Nicky) [facility] 05/13/2024 11:38:40 04/28/19 25 Electromyography (EMG) with Nerve Conduction Study (NCV) completed Gibson (Nicky) [facility] 04/28/2024 15:40:21 Imaging Results None recorded. Procedure Notes None recorded. Medical Equipment None Reported. Allergies No known drug allergies Medications Name Sig Start Date Stop Date Status Note LastModified by Organization Details LastModified Time trazodone 50 mg tablet Take 1 tablet every day by oral route at bedtime. 05/13 completed Not Available Not Available Not Available Adipex-P 37.5 mg tablet Take 1 tablet every day by oral route for 30 days. 01/13 completed Not Available Not Available Not Available Tamiflu 75 mg capsule Take 1 capsule twice a day by oral route for 5 days. 10/03 completed Not Available Not Available Not Available bisoprolol fumarate 5 mg tablet Take 1 tablet every day by oral route. active Not Available Not Available No t Available gabapentin 100 mg capsule Take 1 capsule 3 times a day by oral route. 05/13 completed Not Available Not Available Not Available bupropion HCl XL 150 mg 24 hr tablet, extended release Take 1 tablet by mouth once daily 05/13 completed Not Available Not Available Not Available Vitamin D3 active Not Available Not Av ailable Not Available Zyrtec active OTC Not Available Not Availa ble Not Available B12 active Not Available Not Availa ble Not Available Flonase Allergy Relief 50 mcg/actuati on nasal spray,suspe nsion [place] 1 spray every day by intranasa l route. active OTC Not Available Not Available No t Available magnesium 100 mg (as glycinate) capsule Take by oral route. 05/13 completed Not Available Not Available Not Available Vitals Date Recorded Body height Body mass index (BMI) Body weight Heart rate Oxygen saturation Oxygen saturation in Arterial blood by Pulse oximetry Systolic And Diastolic Provider Name and Address Organization Details Last Updated DateTime 5 182.88 cm 41 kg/m2 140402. 9 g 77 /min 99 % 99 % 124/80 mm[Hg] Rosa Duff [facility] 5 15:40:13 Date Recorded Body height Heart rate Systolic And Diastolic Provider Name and Address Organization Details Last Updated DateTime 01/16/2024 182.88 cm 67 /min 112/80 mm[Hg] Dagmar Pinto [facility] 01/16/2024 10:30:19 Date Recorded Body height Body mass index (BMI) Body weight Heart rate Oxygen saturation Oxygen saturation in Arterial blood by Pulse oximetry Systolic And Diastolic Provider Name and Address Organization Details Last Updated DateTime 4 182.88 cm 39.5 kg/m2 151213. 38 g 74 /min 98 % 98 % 120/78 mm[Hg] Breanna Fuller [facility] 4 13:03:47 Social History Question Answer Notes LastModified by Organizat ion Details LastModified Time Tobacco Smoking Status Never Smoker Not Available [facility] 06/09/2024 15:37:01 What Is Your Level Of Caffeine Consumption? Moderate Information not available 03/12/2017 How Much Tobacco Do You Chew? None [email or web address] Information not available 03/20/2018 What Type Of Diet Are You Following? CARBOHYDRATE Information not available 03/12/2017 Are There Any Guns Present In Your Home? Yes Information not available 03/12/2017 Hard Of Hearing Or Deaf In One Or Both Ears? No Information not available 03/12/2017 Legally Blind In One Or Both Eyes? No Information no t available 03/12/2017 Live Alone Or With Others? With Others Information not available 03/12/2017 What Was The Date Of Your Most Recent Tobacco Screening? 01/14/2024 Information not available 01/14/2024 How Many Children Do You Have? 2 Information not available 03/12/2017 Performs Monthly Self-breast Exam? No Information no t available 03/12/2017 What Is Your Relationship Status? Information not available 03/17/2024 Seat Belts Used Routinely Yes Information not available 03/12/2017 Are You Sexually Active? Yes Information not available 03/12/2017 Smoke Alarm In Home Yes Information not available 03/12/2017 General Stress Level Medium Information not available 03/12/2017 Do You Use Sunscreen Routinely? No Information not available 03/12/2017 Sex: Male Functional Status Question Answer Note LastModified by Organizat ion Details LastModified Time What is your level of alcohol consumption? None Information not available 03/17/2024 Are you currently employed? Yes Information not available 03/12/2017 Are you able to care for yourself? 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 Occasional Information not available 03/12/2017 Mental Status None recorded. Family History Relationship Description Onset Age of this Age Resolved Age Notes LastModified by Organization Details LastModified Time Maternal Grandmother Diabetes mellitus [email or web address] Not available 09:42:30 Paternal Grandmother Leukemia [email or web address] Not available 02/13/2018 09:42:46 Father Hypertensive disorder [email or web address] Not available 2023 13:01:27 Medical History Condition Response Coronary Artery Disease N Other Y Gout N Atrial Fibrillation N Kidney Stones N Hyperthyroidism N Depression N COPD N Anxiety Disorder Y Obesity Y Arthritis N Mental Disorder N Cancer N Stroke N Fibromyalgia N Kidney Disease N Migraines N MRSA exposure N Tuberculosis N AIDS/HIV N Asthma N Pulmonary Embolism N Chronic Ear Infections N Glaucoma N Hypothyroidism N Difficulty Swallowing N Meniere's disease N High Cholesterol Y Liver Disease N Parkinson's Disease N Alzheimer's N Anemia N Neurological Problems Y Diabetes N Congestive Heart Failure (CHF) N Diverticulitis N Reflux/GERD N Heart Disease N Hypertension Y Osteoporosis N Immunizations Vaccine Type Date Status Note Provider Nam e and Address Organization Details Recorded Time Influenza, recombinant, quadrivalent, PF 01/08/2023 dashawn olivarez [facility] 01/14/2024 14:51:59 COVID-19, mRNA, LNP-S, PF, 100 mcg/0.5mL dose or 50 mcg/0.25mL dose 05/27/2020 completed Dagmar Critchley null, [facility] 01/14/2024 14:52:00 COVID-19, mRNA, LNP-S, PF, 100 mcg/0.5mL dose or 50 mcg/0.25mL dose 06/24/2020 completed Dagmar Critchley null, [facility] 01/14/2024 14:52:00 COVID-19, mRNA, LNP-S, PF, 100 mcg/0.5mL dose or 50 mcg/0.25mL dose 03/14/2021 completed Dagmar Critchley null, [facility] 01/14/2024 14:52:00 Tdap 12/01/2014 completed Dagmar Critchley null, [facility] 01/14/2024 14:52:00 Influenza, split virus, trivalent, PF 01/11/2010 completed Dagmar Critchley null, [facility] 01/14/2024 14:52:00 Td (adult) 02/04/2020 completed Dagmar Critchley null, [facility] 01/14/2024 14:52:00 Hep B, adult 04/13/2010 completed Dagmar Critchley null, [facility] 01/14/2024 14:52:00 Hep B, adult 07/22/2009 completed Dagmar Critchley null, [facility] 01/14/2024 14:52:00 Hep B, adult 09/16/2009 completed Dagmar Critchley null, [facility] 01/14/2024 14:52:00 Influenza, split virus, quadrivalent, PF 02/24/2021 completed Dagmar Critchley null, [facility] 01/14/2024 14:52:00 influenza, unspecified formulation 12/25/2023 completed LESA COOK MD [address] [place] [address], [address], [facility] 01/14/2024 15:14:41 influenza, unspecified formulation 01/09/2018 completed Melissa Ramirez null, [facility] 01/10/2018 09:15:09 Past Encounters Encounter ID Performer Location Encounter Start Date Encounter Closed Date Diagnosis/Indication Diagnosis SNOMED-CT Code Diagnosis ICD10 Code Diagnosis Note [id number] LESA COOK MD [facility] CLOSED [address] [place] [address],[place] [address] 03/12/2017 10:45:44 03/12/2017 11:57:54 Obesity 756727749 E66.9 Adult heal th examination 222040150 Z00.00 [id number] LESA COOK MD [facility] CLOSED [address] [place] [address],[place] [address] 06/13/2017 15:25:31 06/13/2017 16:06:25 Fever 333875318 R50.9 Influenza caused by Influenza B virus 15048612 J10.1 On 06/13/17, patient tested positive for type B influenza. At that time, he was prescribed Tamiflu. Seasonal allergy 2279345 04 J30.2 Hyperlipidemia 87527968 E78.5 [id number] LESA COOK MD [facility] CLOSED [address] [place] [address],[place] [facility] [place] [address] 06/21/2017 08:16:52 06/21/2017 08:34:06 Influenza caused by Influenza B virus 09443425 J10.1 On 06/13/17, patient tested positive for type B influenza. At that time, he was prescribed Tamiflu. On 06/21/17, patient reported feeling much better after a course of Tamiflu. Seasonal allergy 7644020 04 J30.2 He uses Zyrtec and Flonase as needed for allergy symptoms. Hyperlipidemia 40046291 E78.5 On 08/04/10, total cholestero l was 206, HDL 49, triglyceri mihaela 70, LDL 143. On 05/22/13, his total cholestero l was 231, HDL 43, triglyceri mihaela 126, LDL 163. On 06/04/14, total cholestero l was 186, HDL 39, triglyceri mihaela 104, LDL 126. On 06/04/14, his total cholestero l was 186, HDL 39, triglyceri mihaela 104, LDL 126. On 09/28/15, his total cholestero l was 185, HDL 23, triglyceri mihaela 186, LDL 125. On 06/14/17, his total cholestero l was 190, HDL 33, triglyceri mihaela 131, LDL 132. Liver enzy mes level above reference range 278365554 R74.8 On 06/14/17, his alkaline phosphatas e was 65, AST 40, ALT 63 for indices normal 9-46). [id number] LESA COOK MD [facility]INE [facility] CLOSED [address] [place] [address], [place] [address] 10/03/2017 09:15:45 10/03/2017 09:36:49 Seasonal allergy 423543331 J30.2 He uses Zyrtec and Flonase as needed for allergy symptoms. Hyperlipidemia 08745001 E78.5 On 08/04/10, total cholestero l was 206, HDL 49, triglyceri mihaela 70, LDL 143. On 05/22/13, his total cholestero l was 231, HDL 43, triglyceri mihaela 126, LDL 163. On 06/04/14, total cholestero l was 186, HDL 39, triglyceri mihaela 104, LDL 126. On 06/04/14, his total cholestero l was 186, HDL 39, triglyceri mihaela 104, LDL 126. On 09/28/15, his total cholestero l was 185, HDL 23, triglyceri mihaela 186, LDL 125. On 06/14/17, his total cholestero l was 190, HDL 33, triglyceri mihaela 131, LDL 132. Liver enzy mes level above reference range 388710468 R74.8 On 06/14/17, his alkaline phosphatas e was 65, AST 40, ALT 63 (normal 9-46). [id number] LESA COOK MD INTERNAL MED[facility]INE [facility] CLOSED [address] [place] [address],[place] [facility] [address] 10/08/2017 09:18:17 10/08/2017 09:54:59 Hyperlipidemia 37680102 E78.5 On 08/04/10, total cholestero l was 206, HDL 49, triglyceri mihaela 70, LDL 143. On 05/22/13, his total cholestero l was 231, HDL 43, triglyceri mihaela 126, LDL 163. On 06/04/14, total cholestero l was 186, HDL 39, triglyceri mihaela 104, LDL 126. On 06/04/14, his total cholestero l was 186, HDL 39, triglyceri mihaela 104, LDL 126. On 09/28/15, his total cholestero l was 185, HDL 23, triglyceri mihaela 186, LDL 125. On 06/14/17, his total cholestero l was 190, HDL 33, triglyceri mihaela 131, LDL 132. On 10/03/17, his total cholestero l was 236, HDL 41, triglyceri mihaela 117, LDL 171. Seasonal allergy 0633135 04 J30.2 He uses Zyrtec and Flonase as needed for allergy symptoms. Liver enzy mes level above reference range 120469476 R74.8 On 06/14/17, his alkaline phosphatas e was 65, AST 40, ALT 63 (normal 9-46). On 10/03/17, his alkaline phosphatas e was 67, AST 42 (normal 10-40), ALT 82 (normal 9-46). Obesity 837696933 E66.9 On 10/08/17, his starting weight was 299 pounds. [id number] LESA COOK MD [facility]INE [facility] CLOSED [address] [facility] [address] 11/08/2017 14:44:19 11/08/2017 15:09:58 Obesity 420578483 E66.9 Patient lost 17 pounds since starting Adipex on 10/08/17. On 10/08/17, his starting weight was 299 pounds. Hyperlipidemia 31982684 E78.5 On 08/04/10, total cholestero l was 206, HDL 49, triglyceri mihaela 70, LDL 143. On 05/22/13, his total cholestero l was 231, HDL 43, triglyceri mihaela 126, LDL 163. On 06/04/14, total cholestero l was 186, HDL 39, triglyceri mihaela 104, LDL 126. On 06/04/14, his total cholestero l was 186, HDL 39, triglyceri mihaela 104, LDL 126. On 09/28/15, his total cholestero l was 185, HDL 23, triglyceri mihaela 186, LDL 125. On 06/14/17, his total cholestero l was 190, HDL 33, triglyceri mihaela 131, LDL 132. On 10/03/17, his total cholestero l was 236, HDL 41, triglyceri mihaela 117, LDL 171. Seasonal allergy 3248184 04 J30.2 He uses Zyrtec and Flonase as needed for allergy symptoms. Liver enzy mes level above reference range 196317447 R74.8 On 06/14/17, his alkaline phosphatas e was 65, AST 40, ALT 63 (normal 9-46). On 10/03/17, his alkaline phosphatas e was 67, AST 42 (normal 10-40), ALT 82 (normal 9-46). [id number] LESA COOK MD [facility]INE [facility] CLOSED [address] [facility],[place] [facility] [address] 12/06/2017 09:34:05 12/06/2017 09:54:53 Obesity 467813543 E66.9 Patient lost 7 pounds since his previous visit on 11/08/17 and 24 pounds total since starting Adipex on 10/08/17. On 10/08/17, his starting weight was 299 pounds. Hyperlipidemia 83460426 E78.5 On 08/04/10, total cholestero l was 206, HDL 49, triglyceri mihaela 70, LDL 143. On 05/22/13, his total cholestero l was 231, HDL 43, triglyceri mihaela 126, LDL 163. On 06/04/14, total cholestero l was 186, HDL 39, triglyceri mihaela 104, LDL 126. On 06/04/14, his total cholestero l was 186, HDL 39, triglyceri mihaela 104, LDL 126. On 09/28/15, his total cholestero l was 185, HDL 23, triglyceri mihaela 186, LDL 125. On 06/14/17, his total cholestero l was 190, HDL 33, triglyceri mihaela 131, LDL 132. On 10/03/17, his total cholestero l was 236, HDL 41, triglyceri mihaela 117, LDL 171. Seasonal allergy 9201469 04 J30.2 He uses Zyrtec and Flonase as needed for allergy symptoms. Liver enzy mes level above reference range 220956215 R74.8 On 06/14/17, his alkaline phosphatas e was 65, AST 40, ALT 63 (normal 9-46). On 10/03/17, his alkaline phosphatas e was 67, AST 42 (normal 10-40), ALT 82 (normal 9-46). [id number] LESA COOK MD INTERNAL MED[facility]INE [facility] CLOSED [address] [place] [address],[place] [address] 01/10/2018 08:28:43 01/10/2018 09:35:22 Obesity 902137796 E66.9 Patient lost 6 pounds since his previous visit on 12/06/17 and 30 pounds total since starting Adipex on 10/08/17. On 10/08/17, his starting weight was 299 pounds. Hyperlipidemia 18265236 E78.5 On 08/04/10, total cholestero l was 206, HDL 49, triglyceri mihaela 70, LDL 143. On 05/22/13, his total cholestero l was 231, HDL 43, triglyceri mihaela 126, LDL 163. On 06/04/14, total cholestero l was 186, HDL 39, triglyceri mihaela 104, LDL 126. On 06/04/14, his total cholestero l was 186, HDL 39, triglyceri mihaela 104, LDL 126. On 09/28/15, his total cholestero l was 185, HDL 23, triglyceri mihaela 186, LDL 125. On 06/14/17, his total cholestero l was 190, HDL 33, triglyceri mihaela 131, LDL 132. On 10/03/17, his total cholestero l was 236, HDL 41, triglyceri mihaela 117, LDL 171. On 12/28/17, his total cholestero l was 187, HDL 38, triglyceri mihaela 104, LDL 128. Seasonal allergy 9438765 04 J30.2 He uses Zyrtec and Flonase as needed for allergy symptoms. Liver enzy mes level above reference range 035958546 R74.8 On 06/14/17, his alkaline phosphatas e was 65, AST 40, ALT 63 (normal 9-46). On 10/03/17, his alkaline phosphatas e was 67, AST 42 (normal 10-40), ALT 82 (normal 9-46). On 12/28/17, his alkaline phosphatas e was 74, AST 22, ALT 36. [id number] LESA COOK MD INTERNAL MEDICINE [facility] CLOSED [address] [place] [address],[place] [address] 02/13/2018 09:34:27 02/13/2018 09:54:31 Obesity 792354846 E66.9 On 02/13/18, his starting weight was 268 pounds. Patient lost 30 pounds with Adipex from 10/08/17 to 01/10/18. On 10/08/17, his starting weight was 299 pounds. Hyperlipidemia 15097521 E78.5 On 08/04/10, total cholestero l was 206, HDL 49, triglyceri mihaela 70, LDL 143. On 05/22/13, his total cholestero l was 231, HDL 43, triglyceri mihaela 126, LDL 163. On 06/04/14, total cholestero l was 186, HDL 39, triglyceri mihaela 104, LDL 126. On 06/04/14, his total cholestero l was 186, HDL 39, triglyceri mihaela 104, LDL 126. On 09/28/15, his total cholestero l was 185, HDL 23, triglyceri mihaela 186, LDL 125. On 06/14/17, his total cholestero l was 190, HDL 33, triglyceri mihaela 131, LDL 132. On 10/03/17, his total cholestero l was 236, HDL 41, triglyceri mihaela 117, LDL 171. On 12/28/17, his total cholestero l was 187, HDL 38, triglyceri mihaela 104, LDL 128. Seasonal allergy 8116148 04 J30.2 He uses Zyrtec and Flonase as needed for allergy symptoms. Liver enzy mes level above reference range 289637685 R74.8 On 06/14/17, his alkaline phosphatas e was 65, AST 40, ALT 63 (normal 9-46). On 10/03/17, his alkaline phosphatas e was 67, AST 42 (normal 10-40), ALT 82 (normal 9-46). On 12/28/17, his alkaline phosphatas e was 74, AST 22, ALT 36. [id number] LESA COOK MD INTERNAL MED[facility]INE [facility] CLOSED [address] [place] [address],[facility] [place] [address] 03/13/2018 08:16:10 03/13/2018 08:35:35 Obesity 711111531 E66.9 Patient lost 4 pounds since starting On 02/13/18. On 02/13/18, his starting weight was 268 pounds. Patient lost 30 pounds with Adipex from 10/08/17 to 01/10/18. On 10/08/17, his starting weight was 299 pounds. Hyperlipidemia 78786339 E78.5 On 08/04/10, total cholestero l was 206, HDL 49, triglyceri mihaela 70, LDL 143. On 05/22/13, his total cholestero l was 231, HDL 43, triglyceri mihaela 126, LDL 163. On 06/04/14, total cholestero l was 186, HDL 39, triglyceri mihaela 104, LDL 126. On 06/04/14, his total cholestero l was 186, HDL 39, triglyceri mihaela 104, LDL 126. On 09/28/15, his total cholestero l was 185, HDL 23, triglyceri mihaela 186, LDL 125. On 06/14/17, his total cholestero l was 190, HDL 33, triglyceri mihaela 131, LDL 132. On 10/03/17, his total cholestero l was 236, HDL 41, triglyceri mihaela 117, LDL 171. On 12/28/17, his total cholestero l was 187, HDL 38, triglyceri mihaela 104, LDL 128. Seasonal allergy 5429903 04 J30.2 He uses Zyrtec and Flonase as needed for allergy symptoms. Liver enzy mes level above reference range 547582538 R74.8 On 06/14/17, his alkaline phosphatas e was 65, AST 40, ALT 63 (normal 9-46). On 10/03/17, his alkaline phosphatas e was 67, AST 42 (normal 10-40), ALT 82 (normal 9-46). On 12/28/17, his alkaline phosphatas e was 74, AST 22, ALT 36. [id number] LESA COOK MD INTERNAL MEDICINE [facility] CLOSED [address] [facility] [address] 04/10/2018 08:20:01 04/10/2018 09:01:34 Obesity 394555951 E66.9 Patient lost 9 pounds with Adipex from 02/13/18 to 04/10/18. On 02/13/18, his starting weight was 268 pounds. Patient lost 30 pounds with Adipex from 10/08/17 to 01/10/18. On 10/08/17, his starting weight was 299 pounds. Hyperlipidemia 41807750 E78.5 On 08/04/10, total cholestero l was 206, HDL 49, triglyceri mihaela 70, LDL 143. On 05/22/13, his total cholestero l was 231, HDL 43, triglyceri mihaela 126, LDL 163. On 06/04/14, total cholestero l was 186, HDL 39, triglyceri mihaela 104, LDL 126. On 06/04/14, his total cholestero l was 186, HDL 39, triglyceri mihaela 104, LDL 126. On 09/28/15, his total cholestero l was 185, HDL 23, triglyceri mihaela 186, LDL 125. On 06/14/17, his total cholestero l was 190, HDL 33, triglyceri mihaela 131, LDL 132. On 10/03/17, his total cholestero l was 236, HDL 41, triglyceri mihaela 117, LDL 171. On 12/28/17, his total cholestero l was 187, HDL 38, triglyceri mihaela 104, LDL 128. Seasonal allergy 4222077 04 J30.2 He uses Zyrtec and Flonase as needed for allergy symptoms. Liver enzy mes level above reference range 627987639 R74.8 On 06/14/17, his alkaline phosphatas e was 65, AST 40, ALT 63 (normal 9-46). On 10/03/17, his alkaline phosphatas e was 67, AST 42 (normal 10-40), ALT 82 (normal 9-46). On 12/28/17, his alkaline phosphatas e was 74, AST 22, ALT 36. [id number] LESA COOK MD INTERNAL MEDICINE [address] [place] [address] 01/14/2024 14:44:28 01/14/2024 15:55:00 Obesity 442568218 E66.9 Obesity: Diet, regular exercise, and weight loss were encouraged . This will continue to be monitored with serial weight measuremen t. Patient lost 9 pounds with Adipex from 02/13/18 to 04/10/18. On 02/13/18, his starting weight was 268 pounds. Patient lost 30 pounds with Adipex from 10/08/17 to 01/10/18. On 10/08/17, his starting weight was 299 pounds. Hyperlipidemia 34324836 E78.5 Hyperlipid emia: Patient prefers to manage this with lifestyle modificati on. Patient to continue current treatment. This will continue to be monitored with serial lab work. On 08/04/10, total cholestero l was 206, HDL 49, triglyceri mihaela 70, LDL 143. On 05/22/13, his total cholestero l was 231, HDL 43, triglyceri mihaela 126, LDL 163. On 06/04/14, total cholestero l was 186, HDL 39, triglyceri mihaela 104, LDL 126. On 06/04/14, his total cholestero l was 186, HDL 39, triglyceri mihaela 104, LDL 126. On 09/28/15, his total cholestero l was 185, HDL 23, triglyceri mihaela 186, LDL 125. On 06/14/17, his total cholestero l was 190, HDL 33, triglyceri mihaela 131, LDL 132. On 10/03/17, his total cholestero l was 236, HDL 41, triglyceri mihaela 117, LDL 171. On 12/28/17, his total cholestero l was 187, HDL 38, triglyceri mihaela 104, LDL 128. Seasonal allergy 2050563 04 J30.2 Seasonal allergies: Patient reports that his seasonal allergy symptoms are fairly well-contr olled with medication . Patient to continue current treatment. This will continue to be monitored symptomati eric. He uses Zyrtec and Flonase as needed for allergy symptoms. Liver enzy mes level above reference range 850783699 R74.8 Elevated LFTs: This has been mild and variable. This will continue to be monitored with serial lab work. On 06/14/17, his alkaline phosphatas e was 65, AST 40, ALT 63 (normal 9-46). On 10/03/17, his alkaline phosphatas e was 67, AST 42 (normal 10-40), ALT 82 (normal 9-46). On 12/28/17, his alkaline phosphatas e was 74, AST 22, ALT 36. Adult [facility] th examination 236342433 Z00.00 Dysesthesia 311230821 R2 0.8 Dysesthesi a: Patient referred for neurology evaluation . On 01/14/24, patient reported having intermitte nt numbness around his mouth which started in 08/2023 as well as intermitte nt diffuse dysesthesi as which started in 10/2023. Patient reported having different areas of his skin, which were tender to touch and felt like it was burning at times. Patient reported that he already had an appointmen t for neurology evaluation in [place], [place], scheduled on 04/01/24, but he requested another referral to see if he could get in somewhere sooner. At that time, patient was also prescribed bupropion XL 150 mg daily for anxiety. Anxiety 85917858 F41.9 Anxiety: Patient prescribed bupropion XL. This will continue to be monitored symptomati eric. On 10/30/23, patient had ER evaluation for 1 month history of oral tingling, weakness in lower legs, and fatigue. Patient had sexual encounter with a female and used protection during intercours e, but did not use protection during oral sex. Patient presented to urgent care where STI testing was performed. HIV and hep C were negative, but chlamydia and gonorrhea results were pending. UA was within normal limits. Lab results were unremarkab le with exception of mild leukocytos is with WBC at 11.35. Patient was treated empiricall y with doxycyclin e 100 mg twice daily for 7 days and IM ceftriaxon e. On 11/02/23, patient had ER evaluation . Patient had received STD prophylact ic treatment, but wanted prophylact ic HIV therapy. He was concerned that his WBC had been elevated. However, on repeat testing, his WBC was 8.0. It was discussed with the patient that postexposu re prophylaxi s being initiated less than 72 hours. Patient was understand ing, but was anxious. Patient was prescribed at hydroxyzin e 25 mg 3 times daily as needed for anxiety. Patient was instructed to follow-up with his PCP in regards to initiating long-term anxiolytic s if needed. On 01/14/24, patient reported having anxiety. Patient stated that he previously took Lexapro, but this was discontinu ed as it caused insomnia and headaches. At that time, patient was prescribed bupropion XL 150 mg daily. Insomnia 229901357 G47.0 0 Insomnia: Patient reports some benefit from trazodone in treating his insomnia. Patient to continue current treatment. This will continue to be monitored symptomati eric. Hypertensive disorder 38 323344 I10 Hypertensi on: Good control. Patient to continue current treatment. This will continue to be monitored with serial blood pressure readings. [id number] LESA COOK MD INTERNAL MEDICINE [address] [place] [address] 01/16/2024 10:26:54 01/16/2024 11:01:11 Dysesthesia 455080634 R20.8 Dysesthesi a: Patient referred for neurology evaluation . On 01/14/24, patient reported having intermitte nt numbness around his mouth which started in 08/2023 as well as intermitte nt diffuse dysesthesi as which started in 10/2023. Patient reported having different areas of his skin, which were tender to touch and felt like it was burning at times. Patient reported that he already had an appointmen t for neurology evaluation in [place], [place], scheduled on 04/01/24, but he requested another referral to see if he could get in somewhere sooner. At that time, patient was also prescribed bupropion XL 150 mg daily for anxiety. Anxiety [id number] F41.9 Anxiety: Patient prescribed bupropion XL. This will continue to be monitored symptomati eric. On 10/30/23, patient had ER evaluation for 1 month history of oral tingling, weakness in lower legs, and fatigue. Patient had sexual encounter with a female and used protection during intercours e, but did not use protection during oral sex. Patient presented to urgent care where STI testing was performed. HIV and hep C were negative, but chlamydia and gonorrhea results were pending. UA was within normal limits. Lab results were unremarkab le with exception of mild leukocytos is with WBC at 11.35. Patient was treated empiricall y with doxycyclin e 100 mg twice daily for 7 days and IM ceftriaxon e. On 11/02/23, patient had ER evaluation . Patient had received STD prophylact ic treatment, but wanted prophylact ic HIV therapy. He was concerned that his WBC had been elevated. However, on repeat testing, his WBC was 8.0. It was discussed with the patient that postexposu re prophylaxi s being initiated less than 72 hours. Patient was understand ing, but was anxious. Patient was prescribed at hydroxyzin e 25 mg 3 times daily as needed for anxiety. Patient was instructed to follow-up with his PCP in regards to initiating long-term anxiolytic s if needed. On 01/14/24, patient reported having anxiety. Patient stated that he previously took Lexapro, but this was discontinu ed as it caused insomnia and headaches. At that time, patient was prescribed bupropion XL 150 mg daily. Insomnia [id number] G47.0 0 Insomnia: Patient reports some benefit from trazodone in treating his insomnia. Patient to continue current treatment. This will continue to be monitored symptomati eric. Hypertensive disorder [id number] I10 Hypertensi on: Good control. Patient to continue current treatment. This will continue to be monitored with serial blood pressure readings. Hyperlipidemia [id number] E78.5 Hyperlipid emia: Patient prefers to manage this with lifestyle modificati on. Patient to continue current treatment. This will continue to be monitored with serial lab work. On 08/04/10, total cholestero l was 206, HDL 49, triglyceri mihaela 70, LDL 143. On 05/22/13, his total cholestero l was 231, HDL 43, triglyceri mihaela 126, LDL 163. On 06/04/14, total cholestero l was 186, HDL 39, triglyceri mihaela 104, LDL 126. On 06/04/14, his total cholestero l was 186, HDL 39, triglyceri mihaela 104, LDL 126. On 09/28/15, his total cholestero l was 185, HDL 23, triglyceri mihaela 186, LDL 125. On 06/14/17, his total cholestero l was 190, HDL 33, triglyceri mihaela 131, LDL 132. On 10/03/17, his total cholestero l was 236, HDL 41, triglyceri mihaela 117, LDL 171. On 12/28/17, his total cholestero l was 187, HDL 38, triglyceri mihaela 104, LDL 128. On 01/14/24, his total cholestero l was 213, HDL 40, triglyceri mihaela 171, LDL 139. Seasonal allergy [id number] 04 J30.2 Seasonal allergies: Patient reports that his seasonal allergy symptoms are fairly well-contr olled with medication . Patient to continue current treatment. This will continue to be monitored symptomati eric. He uses Zyrtec and Flonase as needed for allergy symptoms. Liver enzy mes level above reference range 701081656 R74.8 Elevated LFTs: This has been mild and variable. This will continue to be monitored with serial lab work. On 06/14/17, his alkaline phosphatas e was 65, AST 40, ALT 63 (normal 9-46). On 10/03/17, his alkaline phosphatas e was 67, AST 42 (normal 10-40), ALT 82 (normal 9-46). On 12/28/17, his alkaline phosphatas e was 74, AST 22, ALT 36. On 01/14/24, his alkaline phosphatas e was 67, AST 30, ALT 40. Obesity [id number] E66.9 Obesity: Diet, regular exercise, and weight loss were encouraged . This will continue to be monitored with serial weight measuremen t. Patient lost 9 pounds with Adipex from 02/13/18 to 04/10/18. On 02/13/18, his starting weight was 268 pounds. Patient lost 30 pounds with Adipex from 10/08/17 to 01/10/18. On 10/08/17, his starting weight was 299 pounds. Anemia [id number] D64.9 Anemia: This is mild. This will continue to be monitored with serial lab work. On 10/30/23, his hemoglobin was 14.9, hematocrit 43.0, MCV 94 in the ER. On 01/14/24, his hemoglobin was 13.4 (normal 14.0-18.0) , hematocrit 39.6 (normal 40.0-52.0) , MCV 95. Exposure t o blood and/or body fluid [id number] Z77.21 Patient referred to infectious disease for evaluation . On 10/30/23, patient had ER evaluation for 1 month history of oral tingling, weakness in lower legs, and fatigue. Patient had sexual encounter with a female and used protection during intercours e, but did not use protection during oral sex. Patient presented to urgent care where STI testing was performed. HIV and hep C were negative, but chlamydia and gonorrhea results were pending. UA was within normal limits. Lab results were unremarkab le with exception of mild leukocytos is with WBC at 11.35. Patient was treated empiricall y with doxycyclin e 100 mg twice daily for 7 days and IM ceftriaxon e. On 11/02/23, patient had ER evaluation . Patient had received STD prophylact ic treatment, but wanted prophylact ic HIV therapy. He was concerned that his WBC had been elevated. However, on repeat testing, his WBC was 8.0. It was discussed with the patient that postexposu re prophylaxi s being initiated less than 72 hours. Patient was understand ing, but was anxious. Patient was prescribed at hydroxyzin e 25 mg 3 times daily as needed for anxiety. Patient was instructed to follow-up with his PCP in regards to initiating long-term anxiolytic s if needed. On 01/16/24, patient requested referral to infectious disease for evaluation to see if there was anything else needed after his possible blood exposure and sexual encounter. Patient was still very anxious about these things, and it would set his mind at ease. [id number] KRYSTAL LORENZO DO NEUROLOGY [facility] [address] [place], [place] [id number] 03/17/2024 12:40:41 03/18/2024 05:19:26 Paresthesia [id number] R20.2 Diffuse migratory paresthesi as involving mouth and extremitie s of unknown etiology. His MRI brain and neuro exam are normal.He has already had autoimmune labs that were normal.Alt joyce the clinical picture would be atypical we can schedule nerve testing on the arms and legs.Will also order some additional labs. Spasm [id number] R25.2 He reports increasing spasms in the BLE. Nerve testing and labs to be scheduled. [id number] KRYSTAL LORENZO DO NEUROLOGY [facility] [address] [place] [id number] 04/28/2024 14:21:01 04/29/2024 05:10:12 Skin sensation disturbance 30464678 R20.9 Paresthesia 75591162 R20 .2 Diffuse migratory paresthesi as involving mouth and extremitie s of unknown etiology. His MRI brain and neuro exam are normal.He has already had autoimmune labs that were normal.Alt joyce the clinical picture would be atypical we can schedule nerve testing on the arms and legs.Will also order some additional labs. [id number] KRYSTAL LORENZO DO NEUROLOGY [facility] [address] [place] [phone] 1 05/13/2024 10:48:59 05/14/2024 04:27:45 Paresthesia of bilateral hands [id number] R20.2 Skin sensa tion disturbance 42222455 R20.9 [id number] KRYSTAL LORENZO, DO NEUROLOGY [facility] [address] [place] [address] 05/13/2024 15:21:34 05/14/2024 06:10:52 Paresthesia 19872055 R20.2 Diffuse migratory paresthesi as involving mouth and extremitie s of unknown etiology. His MRI brain and neuro exam are normal.He has already had autoimmune labs that were normal.His nerve testing was negative for any generalize d myopathy or neuropathy .I am unsure of the source of his symptoms but I feel the more pressing issues such as MS and myopathies /neuropath ies have been ruled out. For now I recommende d we monitor the symptoms. He is encouraged to notify me of any new or worsening symptoms. Spasm 02738520 R25.2 He reports increasing spasms in the BLE. No evidence of myopathy on his nerve testing. He has some mildly elevated CK which in isolation is not suggestive of a muscle disease. Bilateral carpal tunnel syndrome [id number] 4489616 G56.03 Recent nerve testing shows b/l CTS, worse on the right. He wants to think about a surgical referral for now. I did suggest he wear a cock up wrist splint on the right hand at night and as needed during the daytime. Health Concerns Section Related Observation LastModified by Organization Detai ls LastModified Time None Recorded Concern Status LastModified by Organization Details LastModified Time None Recorded Advance Directives Directive None Recorded Payers Insurance Date Sequence Insurance Name Policy Number Policy Cunha Covered Member ID Cunha Member ID Guarantor Name 03/07/2018 1 [place] [id number] Bi Oneal [id number] Bi Oneal 11/02/2023 1 [facility] Bi Oneal [id number] Bi Oneal 01/14/2024 1 [employer] (PPO) [id number] Bi Oneal [id number] Bi Oneal 01/14/2024 2 [employer] (PPO) [id number] Bi Oneal [id number] Bi Oneal 01/15/2024 1 [facility] (O) [id number] Bi Oneal [id number] Bi Oneal 05/13/2024 1 [facility] [id number] Bi Oneal [id number] Bi Oneal 01/14/2024 1 [facility] [id number] Bi Oneal [id number] Bi Oneal Notes Date Note Type Note Provider Name and Address Organization Details Recorded Time 01/16/2024 text/html Patient requests referral to infectious disease for evaluation to see if there was anything else needed after his possible blood exposure and sexual encounter. Patient is still very anxious about these things, and it would set his mind at ease. Patient returns today to workup his anemia. On 10/30/23, his hemoglobin was 14.9, hematocrit 43.0, MCV 94 in the ER. On 01/14/24, his hemoglobin was 13.4 (normal 14.0-18.0), hematocrit 39.6 (normal 40.0-52.0), MCV 95. Patient also returns today to follow-up after recent lab work. He reports some benefit from trazodone in treating his insomnia. He monitors his blood pressure. He has been trying to watch his diet for cholesterol. He states that his seasonal allergy symptoms are fairly well controlled. He has a history of elevated liver function tests, but he denies any abdominal pain. On 01/14/24, his total cholesterol was 213, HDL 40, triglycerides 171, LDL 139. On 01/14/24, his TSH was 0.835. On 01/14/24, his alkaline phosphatase was 67, AST 30, ALT 40. The patient's previous labs were reviewed and discussed with him today. Patient reports taking his medications as prescribed and denies any current side effects from them. LESA COOK MD [address] [place], [phone], [facility] 01/16/2024 11:17:23 03/17/2024 text/html 43 y/o right valdez ded male here for neurologic consultation requested by Dr Mejia regarding oral paresthesias. Bi is the primary historian for today's visit. Bi developed tingling and numbness in and around his mouth this past summer. He had labs checked for possible STD's which were negative.He also has developed a burning sensation on his skin that involves the arms and legs.He complains of weakness in his arms and legs. He has frequent spasms in his legs.he feels his hands get tight on him and sometimes he has a pins and needle sensation.He feels like he has a constant sunburn. His clothes can feel irritating to his skin. He finds that he can have hot spots that move around.His mouth tingling comes and goes. He has no issues with eating, he denies any tongue biting due to the numbness. His nostrils and eyes burn at times. He had normal labs for TSH and B12 in December. He tells me that he also follows with a PCP in [place] that did a full lab workup for autoimmune disease. He has those results on his phone and it was all normal. He has an issue over the summer of waking up with vertigo and roaring in his ear. That will still come and go as well. He had a MRI brain done at [facility] a few weeks ago. He has the disc with him today. This imaging was normal. He was prescribed gabapentin recently by his PCP for nerve pain. He does feel he sleeps better since he took this. Before taking gabapentin he was waking up with full body tremors. KRYSTAL LORENZO, DO [address] [place], [address], [facility] 03/17/2024 15:56:47 05/13/2024 text/html Bi comes in to day for a follow up. At the last visit I ordered labs and nerve testing on his extremities.His labs were mostly normal. He has very slight elevation in his B6 level. His CK was also mildly elevated at 285 but aldolase was normal.His nerve testing on the arms does show bilateral CTS, worse on the right. No evidence of neuropathy, myopathy, nor radiculopathy.The nerve testing on his legs was normal.Today he reports that he is about the same. He does notice the burning on his tongue and the tingling in his hands. He mostly now only had the muscle spasms in his left calf but very rarely he will notice a muscle twitch in his pectorial or deltoid.He does notice his hands wake him up numb. He feels he drops things easily with the right hand. Today he reportsINIITIAL VISIT: (03/17/24)43 y/o right handed male here for neurologic consultation requested by Dr Mejia regarding oral paresthesias. Bi is the primary historian for today's visit. Bi developed tingling and numbness in and around his mouth this past summer. He had labs checked for possible STD's which were negative.He also has developed a burning sensation on his skin that involves the arms and legs.He complains of weakness in his arms and legs. He has frequent spasms in his legs.he feels his hands get tight on him and sometimes he has a pins and needle sensation.He feels like he has a constant sunburn. His clothes can feel irritating to his skin. He finds that he can have hot spots that move around.His mouth tingling comes and goes. He has no issues with eating, he denies any tongue biting due to the numbness. His nostrils and eyes burn at times. He had normal labs for TSH and B12 in December. He tells me that he also follows with a PCP in [place] that did a full lab workup for autoimmune disease. He has those results on his phone and it was all normal. He has an issue over the summer of waking up with vertigo and roaring in his ear. That will still come and go as well. He had a MRI brain done at [facility] a few weeks ago. He has the disc with him today. This imaging was normal. He was prescribed gabapentin recently by his PCP for nerve pain. He does feel he sleeps better since he took this. Before taking gabapentin he was waking up with full body tremors. KRYSTAL LORENZO, DO [address] [place], [address], [facility] 05/13/2024 16:46:10
--- OUTSIDE RECORDS SUMMARY | 2024-10-03 15:37 | XMS_ITS | Clinical Summary ---
Author Organization [facility] Address [address] [place] [address] Care Team Providers Care Human Services Case Manager Name Role Phone Skip Knight MD Primary Care Provider [phone] Allergies No known active allergies Medications bisoprolol (Zebeta) 5 MG tablet Take 1 tablet (5 mg) by mouth 1 (one) time each day. Active cetirizine (ZyrTEC) 10 MG tablet Take 1 tablet (10 mg) by mouth 1 (one) time each day. Active fluticasone (Flonase) 50 MCG/ACT nasal spray Administer 1 spray into each nostril 1 (one) time each day. Shake gently. Before first use, prime pump. After use, clean tip and replace cap. Active gabapentin (Neurontin) 100 MG capsule Take 1 capsule (100 mg total) by mouth 2 (two) times a day. 60 capsule 10/23/19 21 022 Discontinued Active Problems Problem Noted Date Diagnosed Date Essential hypertension 08/30/2020 Trauma 08/29/2020 Rib fracture 08/29/2020 Overview (08/29/2020): - multimodal pain control - pulmonary hygiene Multiple closed pelvic fract ures with disruption of pelvic havasupai 08/29/2020 Overview (08/31/2020): - ORF consult - patient in traction - anticipate OR with ORF 08/30 - will require enoxaparin 30 mg bid through 09/29/20 per protocol ($10 copay per PA Pod) Social History Tobacco Use Types Packs/Day Years Used Date Smoking Tobacco: Never Smokeless Tobacco: Former Snuff Tobacco Cessation:Counseling Given: Not Answered Alcohol Use Standard Drinks/Week Comments Not Currently 7 (1 standard drink = 0.6 oz pur e alcohol) PHQ-2 Answer Date Recorded Patient Health Questionnaire-2 Score 0 11/22/2020 Sex and Gender Information Value Date Recorded Sex Assigned at Not on file Legal Sex Male 6:26 PM EDT Gender Identity Not on file Sexual Orientation Not on file Last Filed Vital Signs Vital Sign Reading Time Taken Comments Blood Pressure 125/83 10/30/2023 3:33 AM EDT Pulse 62 10/30/2023 3:33 AM EDT Temperature 36.7 C (98 F) 10/30/2023 3:33 AM EDT Respiratory Rate 16 10/30/2023 3:33 AM EDT Oxygen Saturation 98% 10/30/2023 3:33 AM EDT Inhaled Oxygen Concentration - - Weight 127 kg (280 lb) 10/18/2022 10:43 AM EDT Height 180.3 cm (5' 11 ) 10/18/2022 10:43 AM EDT Body Mass Index 39.05 10/18/2022 10:43 AM EDT Plan of Treatment Health Maintenance Due Date Last Done Comments [facility]-Infant/Child/Adol SDOH Screenings 1982 [facility]-Varicella Vaccines (1 of 2 - 13+ 2-dose series) 12/09/1995 HPV Vaccines (1 - Male 3-dos e series) 1997 [facility]- SDOH Screenings 2000 [facility]-Adult SDOH Screenings 2000 [facility]-Depression Screening 11/22/2021 11/22/2020 [facility]-IWDDM-10 Vaccine ( season) 2023 03/14/2021, 06/24/2020, 05/27/2020 [facility]-Influenza Vaccine (#1) 11/24/202402/24, 01/09/2018, 01/11/2010 [facility]-DTaP,Tdap,and Td Vaccine s (3 - Td or Tdap) 02/03/2030 02/04/2020, 12/01/2014 [facility]-Zoster Vaccines (1 of 2) 2032 [facility]-Hepatitis B Vaccines Completed 011, 09/16/2009, 07/22/2009 [facility]-Obesity Intervention Completed 10/18/2022 [facility]-HIV Screening Completed 10/30/2023, 08/28/2020 [facility]-Hepatitis C Screening Completed 2023, 08/28/2020 [facility]-HIB Vaccines Aged Out No longer e ligible based on patient's age to complete this topic [facility]-Hepatitis A Vaccines Aged Out No longer eligible based on patient's age to complete this topic [facility]-IPV Vaccines Aged Out No longer e ligible based on patient's age to complete this topic [facility]-Pneumococcal Vaccine: Pediatrics (0 to 5 Years) and At-Risk Patients (6 to 49 Years) Aged Out No longer eligible b ased on patient's age to complete this topic [facility]-Rotavirus Vaccines Aged Out No lo nger eligible based on patient's age to complete this topic Medical Devices Implanted Type Area Road Worker Device Identifier Shelf Expiration Date Model / Serial / Lot Plate Recon 3.5mm Straight 7 Hole 82mm - [id number] Implanted:Qty: 1 on 08/30/2020 at [facility] Plate Left: Hip [id number] / / Screw 3.5mm Cortex Selftap 26mm - [id number] Implanted:Qty: 1 on 08/30/2020 at [facility] Left: Hip [id number] 204.826 / / Screw 4.5mm Cortex 140mm - [id number] Implanted:Qty: 1 on 08/30/2020 by Colin Adams MD at [facility] Left: Hip [id number] 214.140 / / Screw 3.5mm Cortex Selftap 32mm - [id number] Implanted:Qty: 1 on 08/30/2020 by Colin Adams MD at [facility] Left: Hip [id number] 204.832 / / Screw 3.5mm Cortex Selftap 32mm - [id number] Implanted:Qty: 1 on 08/30/2020 by Colin Adams MD at [facility] Left: Hip [id number] 204.832 / / Screw 3.5mm Cortex Selftap 40mm - [id number] Implanted:Qty: 1 on 08/30/2020 by Colin Adams MD at [facility] Left: Hip [id number] 204.840 / / Screw 3.5mm Cortex Selftap 28mm - [id number] Implanted:Qty: 1 on 08/30/2020 by Colin Adams MD at [facility] Left: Hip [id number] 204.828 / / Screw Cortex Selftap 3.5mm 28mm - [id number] Implanted:Qty: 2 on 08/30/2020 by Colin Adams MD at [facility] Left: Hip [id number] 204.828 / / Screw 3.5mm Cortex Selftap 30mm - [id number] Implanted:Qty: 1 on 08/30/2020 by Colin Adams MD at [facility] Left: Hip [employer] [id number] 204.830 / / Screw 3.5mm Cortex Selftap 38mm - [id number] Implanted:Qty: 1 on 08/30/2020 by Colin Adams MD at [facility] Left: Hip [id number] 204.838 / / Screw 3.5mm Cortex Pelvic Selftap 70mm - [id number] Implanted:Qty: 1 on 08/30/2020 by Colin Adams MD at [facility] Left: Hip [id number] 204.670 / / Procedures Procedure Name Priority Date/Time Associated Diagnosis Comments HEPATITIS C ANTIBODY - ED W/REFLEX TO HCV QUANT PCR STAT 10/30/2023 1:49 AM EDT ED HIV 1/2 ANTIBODY/ANTIGEN SCREEN WITH REFLEX TO HIV I/II DIFFERENTIATION STAT 10/30/2023 1:49 AM EDT from Last 3 Months or Most Recently Relevant to Health Maintenance Results * ED HIV 1/2 Antibody/Antigen Screen w/Reflex to HIV 1/2 Differentiation (10/30/2023 1:49 AM EDT) HIV 1 & 2 Antibody/Antigen Screen Non Reactive Non Reactive 10/30/2023 2:39 AM EDT [facility] Comment:Screening for HIV 1 & 2 antibodies, and P24 antigen is NONREACTIVE. No confirmatory testing is required. Blood Venous blood specimen / Unknown Venipuncture / Unknown 10/30/2023 1:49 AM EDT 10/30/2023 1:59 AM EDT us Kurtis Baig MD LAB BLOOD ORDERABLES Final Resu lt Performing Organization Address City/[facility]/ZIP Co de Phone Number [facility]ALTHCARE [facility] [address] [place] [address] * Hepatitis C Antibody - ED (10/30/2023 1:49 AM EDT) Hepatitis C Antibody Negative Negative 10/30/2023 2:39 AM EDT [facility] Blood Venous blood specimen / Unknown Venipuncture / Unknown 10/30/2023 1:49 AM EDT 10/30/2023 1:59 AM EDT Kurtis Baig MD LAB BLOOD ORDERABLES Final Resu lt Performing Organization Address City/[facility] Co de Phone Number [facility]ALTHCARE [facility] [address] [place] [address] from Last 3 Months or Most Recently Relevant to Health Maintenance Insurance Advance Directives Documents on File Type Date Recorded Patient Benefits Director Expl anation Advance Directives and Living Will 08/27/2020 1:41 PM None at this time - EN Care Teams Human Services Case Manager Relationship Specialty Start Date End Date Skip Knight MD [address] [place] [address] PCP - General 09/22/20
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
--- OUTSIDE RECORDS SUMMARY | 2024-10-03 15:37 | XMS_ITS | Data Portability ---
Author Organization DHEERAJ - GEORGE - Leslie & LEXII Amanda ADMIN Address [address] [place] [id number] Care Team Providers Care Fuel Cell Repairer Name Role Phone JEBSADI Primary Care Provider Assessment No assessment recorded. Plan of Treatment Reminders Order Date Submit Date Provider Last Modified By Organization Details Last Modified Time Details Appointments None recorded. Lab RPR (rapid plasma reagin), serum 2023 [facility], [address] [facility], [place], [address], 4 08:21:56 HIV 1+2 Ab + HIV1 p24 Ag, quantitati ve immunoassa y, serum 2023 [facility], [address] [facility], [place], [address], 4 10:16:21 hepatitis C virus Ab, serum 2023 [email or web address] [facility], [address] [facility] [address], [place], [address], 4 11:39:42 CBC w/ auto diff 2023 [facility], [address] [facility], [place], [address], 4 14:35:37 CMP, serum or plasma 2023 [facility], [address] , [place], [address], 15:53:06 [facility], [address], [place], [address], 15:32:27 infectious disease panel 2023 [facility], [address], [place], [address], 15:30:32 vitamin B12, serum [address] [facility], [address], [place], [address], 11:39:43 vitamin D, 25-hydroxy , total, serum 2023 [place] [id number] [facility], [address] , [place], [address], 11:39:43 magnesium, serum or plasma 2023 [facility], [address] [place], [address], 10:28:51 Referral None recorded. Procedures None recorded. Surgeries None recorded. Imaging None recorded. Medication Orders None recorded. Patient TargetsNo targets recorded. Patient InstructionsNo instructions recorded. Reason for Referral None Reported. Results Created Date Observation Date Name Description Value Unit Range Abnormal Flag Note LastModifiedBy Organization Detail LastModifiedTime 01/24/20 24 01/24/2024 CBC AUTO W DIFF WBC 8.0 K/uL 4.0-10 .5 Not Available [facility] ([facility]) [address] , [place], [address], 01/24/2024 14:35:37 01/24/2001/24/2024 CBC AUTO W DIFF RBC 4.4 M/mm3 4.7-6. 1 low Not Available [facility] ([facility]) [address] , [place], [address], 01/24/2024 14:35:37 01/24/2001/24/2024 CBC AUTO W DIFF HGB 14.1 gm/dL 13.5-1 8.0 Not Available [facility] ([facility]) [address] , [place], [address], 01/24/2024 14:35:37 01/24/2001/24/2024 CBC AUTO W DIFF HCT 41.9 % 42.0-5 2.0 low Not Available [facility] ([facility]) [address] , [place], [address], 01/24/2024 14:35:37 01/24/20 24 01/24/2024 CBC AUTO W DIFF MCV 94.4 fL 78-100 Not Available [facility] ([facility]) [address] , [place], [address], 01/24/2024 14:35:37 01/24/20 24 01/24/2024 CBC AUTO W DIFF MCH 31.8 pg 27-31 high Not Available [facility] ([facility]) [address] , [place], [address], 01/24/2024 14:35:37 01/24/2001/24/2024 CBC AUTO W DIFF MCHC 33.7 g/dL 32-36 Not Available [facility] ([facility]) [address] , [place], [address], 01/24/2024 14:35:37 01/24/20 24 01/24/2024 CBC AUTO W DIFF RDW 12.3 % 11.5-1 4.0 Not Available [facility] ([facility]) [address] , [place], [address], 01/24/2024 14:35:37 01/24/2001/24/2024 CBC AUTO W DIFF platelet count 290 K/uL 150-45 0 Not Available [facility] ([facility]) [address], [place], [address], 01/24/2024 14:35:37 01/24/2001/24/2024 CBC AUTO W DIFF MPV 9.2 fL 6-9.5 Not Available [facility] ([facility]) [address], [place], [address], 01/24/2024 14:35:37 01/24/2001/24/2024 CBC AUTO W DIFF neutrophil% 58.7 % 43-65 Not Available [facility] ([facility]) [address], [place], [address], 01/24/2024 14:35:37 01/24/2001/24/2024 CBC AUTO W DIFF lymphocyte% 30.3 % 20.5-4 5.5 Not Available [facility] ([facility]) [address] , [place], [address], 01/24/2024 14:35:37 01/24/2001/24/2024 CBC AUTO W DIFF monocyte% 8.0 % 5.5-11 .7 Not Available [facility] ([facility]) [address] , [place], [address], 01/24/2024 14:35:37 01/24/2001/24/2024 CBC AUTO W DIFF eosinophil% 2.0 % 0.9-2. 9 Not Available [facility] ([facility]) [address], [place], [address], 01/24/2024 14:35:37 01/24/2001/24/2024 CBC AUTO W DIFF basophil% 0.6 % 0.2-1. 0 Not Available [facility] ([facility]) [address] [place], [address], 01/24/2024 14:35:37 01/24/2001/24/2024 CBC AUTO W DIFF immature granulocytes % 0.4 % 0.0-0. 8 Not Available [facility] ([facility]) [address] [place], [address], 01/24/2024 14:35:37 01/24/2001/24/2024 CBC AUTO W DIFF nucleated red blood cells % 0.0 % Not Available [facility] ([facility]) [address] [place], [address], 01/24/2024 14:35:37 01/24/20 24 01/24/2024 CBC AUTO W DIFF neutrophil# 4.7 K/uL 2.2-4. 8 Not Available [facility] ([facility]) [address] [place], [address], 01/24/2024 14:35:37 01/24/20 24 01/24/2024 CBC AUTO W DIFF lymphocyte# 2.4 cell/ mcL 1.3-2. 9 Not Available [facility] ([facility]) [address] [place], [address], 01/24/2024 14:35:37 01/24/2001/24/2024 CBC AUTO W DIFF monocyte# 0.6 cell/ mcL 0.3-0. 8 Not Available [facility] ([facility]) [address] [place], [address], 01/24/2024 14:35:37 01/24/20 24 01/24/2024 CBC AUTO W DIFF eosinophil# 0.2 cell/ mcL 0-0.2 Not Available [facility] ([facility]) [address] [place], [address], 01/24/2024 14:35:37 01/24/20 24 01/24/2024 CBC AUTO W DIFF basophil# 0.1 cell/ mcL 0.0-1. 0 Not Available [facility] ([facility]) [address], [place], [address], 01/24/2024 14:35:37 01/24/20 24 01/24/2024 CBC AUTO W DIFF immature gramulocytes # 0.03 K/uL Not Available [facility] ([facility]) [address], [place], [address], 01/24/2024 14:35:37 01/24/20 24 01/24/2024 CBC AUTO W DIFF nucleated red blood cells # 0.00 K/uL Not Available [facility] ([facility]) [address], [place], [address], 01/24/2024 14:35:37 01/24/20 24 01/24/2024 CBC AUTO W DIFF manual differential NO Not Available [facility] ([facility]) [address], [place], [address], 01/24/2024 14:35:37 01/24/20 24 01/24/2024 COMP METAB OLIC PANEL sodium 138 mmol/ L 136-14 5 Not Available [facility] ([facility]) [address], [place], [address], 01/24/2024 15:53:06 01/24/2001/24/2024 COMP METAB OLIC PANEL potassium 4.3 mmol/ L 3.6-5. 0 Not Available [facility] ([facility]) [address], [place], [address], 01/24/2024 15:53:06 01/24/2001/24/2024 COMP METAB OLIC PANEL chloride 100 mmol/ L 98-107 Not Available [facility] ([facility]) [address], [place], [address], 01/24/2024 15:53:06 01/24/2001/24/2024 COMP METAB OLIC PANEL carbon dioxide 26.8 mmol/ L 21.0-3 2.0 Not Available [facility] ([facility]) [address], [place], [address], 01/24/2024 15:53:06 01/24/2001/24/2024 COMP METAB OLIC PANEL anion gap 15.5 Not Available [facility] ([facility]) [address], [place], [address], 01/24/2024 15:53:06 01/24/2001/24/2024 COMP METAB OLIC PANEL glucose 91 mg/dL 70-120 Not Available [facility] ([facility]) [address], [place], [address], 01/24/2024 15:53:06 01/24/2001/24/2024 COMP METAB OLIC PANEL BUN 17 mg/dL 7-18 Not Available [facility] ([facility]) [address], [place], [address], 01/24/2024 15:53:06 01/24/2001/24/2024 COMP METAB OLIC PANEL creatinine 1.2 mg/dL 0.6-1. 3 Not Available [facility] ([facility]) [address], [place], [address], 01/24/2024 15:53:06 01/24/2001/24/2024 COMP METAB OLIC PANEL glomerular filtration rate 78 mlper min 60- GFR LIMIT ATION : The eGFR equat ion CKD-E PI 2020 is not appli cable for pedia tric patie nts or great er than 90 years of age. The follo wing condi tions may alter the GFR resul t: extre mes in body size, malnu triti on or obesi ty, skele stefano muscl e disea se, parap legia or quadr ipleg ia, veget jose ramon diet or rapid ly hines ing kiney funct ion. Not Available [facility] ([facility]) [address], [place], [address], 01/24/2024 15:53:06 01/24/20 24 01/24/2024 COMP METAB OLIC PANEL total protein 9.1 g/dL 6.4-8. 2 high Not Available [facility] ([facility]) [address] [facility], [place], [address], 01/24/2024 15:53:06 01/24/20 24 01/24/2024 COMP METAB OLIC PANEL albumin 4.4 g/dL 3.4-5. 0 Not Available [facility] ([facility]) [address] [facility], [place], [address], 01/24/2024 15:53:06 01/24/20 24 01/24/2024 COMP METAB OLIC PANEL globulin 4.7 Not Available [facility] ([facility]) [address] [facility] [address], [place], [address], 01/24/2024 15:53:06 01/24/20 24 01/24/2024 COMP METAB OLIC PANEL alb/glob ratio 0.9 0.7-2 Not Available [facility] ([facility]) [address], [place], [address], 01/24/2024 15:53:06 01/24/20 24 01/24/2024 COMP METAB OLIC PANEL calcium 9.7 mg/dL 8.5-10 .5 Not Available [facility] ([facility]) [address], [place], [address], 01/24/2024 15:53:06 10/31/01/24/2024 COMP METAB OLIC PANEL bilirubin total 0.60 mg/dL 0.10-1 .00 Not Available [facility] ([facility]) [address], [place], [address], 01/24/2024 15:53:06 01/24/20 24 01/24/2024 COMP METAB OLIC PANEL AST (SGOT) 22 U/L 0-37 Not Available [facility] ([facility]) [address], [place], [address], 01/24/2024 15:53:06 01/24/2001/24/2024 COMP METAB OLIC PANEL ALT (SGPT) 44 U/L 0-65 Not Available [facility] ([facility]) [address], [place], [address], 01/24/2024 15:53:06 01/24/20 24 01/24/2024 COMP METAB OLIC PANEL alk phosphatase 67 U/L 46-116 Not Available [facility] ([facility]) [address], [place], [address], 01/24/2024 15:53:06 01/24/2001/24/2024 MAGNE SIUM magnesium 2.3 mg/dL 1.8-2. 4 Not Available [facility] ([facility]) [address] [facility], [place], [address], 01/24/2024 15:53:08 01/24/20 24 01/24/2024 VITAM IN D, 25-HY DROXY vitamin D, 25-hydroxy 20.5 NG/mL 30.0-1 00.0 low Not Available [facility] ([facility]) [address] [place], [address], 01/24/2024 15:53:09 01/24/20 24 01/24/2024 VITAM IN B12 vitamin B12 357 pg/mL 193-98 6 *Note : Refer ence Rivera Sargent. New Test Metho d in use. Not Available [facility] ([facility]) [address] [facility], [place], [address], 01/24/2024 15:53:10 01/24/20 24 01/25/2024 RPR QUAL RPR NON REACTI VE non reacti ve Perfo rmed at: [facility] n [address] [facility], [facility] [address] 1702 Lab Direc tor: Av redman PhD, Phone : [phone] Not Available [facility] ([facility]) [address] [facility], [place], [address], 01/25/2024 08:21:55 01/24/20 24 01/25/2024 HIV AB/P2 4 AG WITH REFLE X HIV screen 4TH generation wrfx Non Reacti ve non reacti ve HIV-1 /HIV- 2 antib odies and HIV-1 p24 antig en were NOT detec west. There is no labor atory evide nce of HIV infec tion. HIV Negat ronald [facility] [address] [facility], [facility], [place] [address] Lab Direc tor: Av redman PhD, Phone : [phone] Not Available [facility] ([facility]) [address] [facility], [place], [address], 01/25/2024 09:16:34 01/24/20 24 01/25/2024 HCV ANTIB AUTUMN hcvab Non Reacti ve non reacti ve HCV antib autumn alone does not diffe renti ate betwe en previ ously resol sandra infec tion and activ e infec tion. Equiv ocal and React ronald HCV antib autumn resul ts shoul d be follo wed up with an HCV RNA test to suppo rt the diagn osis of activ e HCV infec tion. [facility] [address] [facility] [facility], [facility], [place] [address] Lab Direc tor: Av redman PhD, Phone : [phone] Not Available [facility] ([facility]) [address], [place], [address], 01/25/2024 09:16:35 Result Notes None recorded. Procedures Surgical History Date Name Laterality Status Provider Name and Address Organization Details Recorded Time 1 Hip Surgery completed Estefany Gasca [facility] & [place] 02/05/2024 15:02:21 Imaging Results None recorded. Procedure Notes None recorded. Medical Equipment None Reported. Allergies No known drug allergies Medications Name Sig Start Date Stop Date Status Note LastModified by Organization Details LastModified Time vitamin b12 1000mcg tr tab TAKE 1 TABLET BY MOUTH ONCE DAILY active Not Available Not Available No t Available vitamin d3 5000 unit tabs active Not Available Not Available Not Available trazodone 50 mg tablet TAKE 1 TABLET BY MOUTH AT BEDTIME NEEDED active Not Available Not Available No t Available cyanocobalam in (vit B-12) 1,000 mcg tablet Take 1 tablet by mouth once daily active Not Available Not Available No t Available doxycycline monohydrate 100 mg tablet 01/21 completed Not Available Not Available Not Available bisoprolol fumarate 5 mg tablet TAKE 1 TABLET BY MOUTH ONCE DAILY active Not Available Not Available No t Available alprazolam 0.5 mg tablet TAKE 1 TABLET BY MOUTH TWICE DAILY NEEDED PANIC ATTACKS active Not Available Not Available No t Available dexamethason e 2 mg tablet TAKE 1 TABLET BY MOUTH EVERY 12 HOURS FOR 5 DAYS 01/21 completed Not Available Not Available Not Available hydroxyzine pamoate 25 mg capsule TAKE 1 CAPSULE BY MOUTH THREE TIMES DAILY NEEDED FOR ITCHING FOR UP TO 10 DAYS 01/21 completed Not Available Not Available Not Available bupropion HCl XL 150 mg 24 hr tablet, extended release 150 mg every day by oral route. 2023 active Not Available Not Available Not Avai lable Vitamin D3 125 mcg (5,000 unit) tablet Take 1 tablet every day by oral route for 90 days. 2023 active Not Available Not Available Not Avai lable Vitals Date Recorded Body weight Body temperature Heart rate Oxygen saturation Oxygen saturation in Arterial blood by Pulse oximetry Systolic And Diastolic Provider Name and Address Organization Details Last Updated DateTime 4 919898. 19 g 98.1 [degF] 64 /min 96 % 96 % 125/80 mm[Hg] Marivel Boyd [place] - [facility] - [place] [facility] [place] 4 13:03:39 Date Recorded Body height Oxygen saturation Oxygen saturation in Arterial blood by Pulse oximetry Body temperature Body mass index (BMI) Body weight Heart rate Systolic And Diastolic Provider Name and Address Organization Details Last Updated DateTime 4 182.88 cm 99 % 99 % 96.5 [degF] 39 kg/m2 918748. 45 g 70 /min 120/80 mm[Hg] Estefany Gasca [place] [facility] - [place] [facility] [place] 4 14:46:41 Social History Question Answer Notes LastModified by [facility] [place] ion Details LastModified Time Do You Have An Advance Directive? No [email or web address] Information not available 02/05/2024 Are You Blind Or Do You Have Difficulty Seeing? No [email or web address] Information not available 02/05/2024 What Was The Date Of Your Most Recent Tobacco Screening? 01/22/2024 [email or web address] Information not available 02/05/2024 Are You Passively Exposed To Smoke? No [email or web address] Information not available 02/05/2024 How Much Tobacco Do You Smoke? No [email or web address] Information not available 02/05/2024 Sex: Unknown Functional Status Question Answer Note LastModified by Organizat ion Details LastModified Time Do you use any illicit or recreational drugs? No [email or web address] Information not available 02/05/2024 What is your level of alcohol consumption? Occasional [email or web address] Information not available 02/05/2024 Do you or have you ever used smokeless tobacco? Former smokeless tobacco user [email or web address] Information not available 02/05/2024 What is your exercise level? Occasional [email or web address] Information not available 02/05/2024 Mental Status Question Answer Note LastModified by Organization D etails LastModified Time Do you feel stressed (tense, restless, nervous, or anxious, or unable to sleep at night)? [id number] [email or web address] Information not available 02/05/2024 Family History Nothing Reported. Medical History Condition Response High Cholesterol Y Hypertension Y Past Encounters Encounter ID Performer Location Encounter Start Date Encounter Closed Date Diagnosis/Indication Diagnosis SNOMED-CT Code Diagnosis ICD10 Code Diagnosis Note [id number] Joanne Machado in, [employer] [facility] Infectiou s Disease -[address] [place] [address] 01/24/2024 12:56:25 01/24/2024 13:52:24 At high risk of sexually transmitted infection 003008002 Z91.89 Will run testing for STD/STI. If all tests are negative, no follow up required. Patient agrees with plan of care. Paresthesia 04132422 R20 .2 Patient is scheduled with neurology. Follow up with specialty and PCP. Health Concerns Section Related Observation LastModified by Organization Detai ls LastModified Time None Recorded Concern Status LastModified by Organization Details LastModified Time None Recorded Advance Directives Directive N: Payers Insurance Date Sequence Insurance Name Policy Number Policy Cunha Covered Member ID Cunha Member ID Guarantor Name 02/18/2020 1 [facility] [id number] [employer] [id number] [employer] 01/29/2024 1 [employer] [id number] [employer] [id number] [employer] 01/24/2024 1 [employer] (POS) Bi Oneal [id number] [employer] Notes Date Note Type Note Provider Name and Address Organization Details Recorded Time 01/24/2024 text/html patient presents to clinic for concerns of sexually transmitted disease. He reports an unprotected oral sex encounter back in July 2023. He states he has some burning and irritation in his mouth and gums. He denies any urinary symptoms. He denies any sores or lesions. He does not have a history of cold sores. He denies any sore throat. Denies any fevers. Denies any unintentional weight loss. Joanne Metcalf, CHRIS [address], [place], [address], [facility] [place] - [place] 01/24/2024 14:11:13
--- NOTE | 2024-10-03 15:38 | US_ITS ---
FINAL REPORT CLINICAL HISTORY: THYROID NODULE COMPARISON: 03/07/2024 FINDINGS: Sonographic images of the thyroid gland were obtained. The right thyroid lobe measures 4.2 mm. in length. The left thyroid lobe measures 4.45 mm. in length. The thyroid isthmus measures 5 mm. The echogenicity is normal. There is an isoechoic mass in the left lobe of the thyroid again noted, 15 x 14 x 12 mm in size, not significantly changed since the prior ultrasound of February 2024. This is a TI-RADS category 3 nodule. There is an ill-defined 9 mm TI-RADS category 3 nodule in the posterior right lobe of the thyroid, which was not discretely imaged on the prior exam. The nodules in the right lobe of the thyroid noted on the previous exam are not well-visualized on the current exam. IMPRESSION: Dominant nodule is a 15 x 14 x 12 TI-RADS category 3 isoechoic nodule in the left lobe of the thyroid gland. This is not significantly changed since the prior exam of 03/07/2024, and continued 12-month follow-up is suggested. Reviewed, Interpreted and Dictated by Kieran Nielsen MD Transcribed by Fatemeh Llanes Authenticated and [facility]
== END 2024-10-03 23:59 | disposition home or self-care (01) ==
LOC: RAD 15:34
PROVIDERS: PCP Family Medicine; Visit Provider Family Medicine
DX: E04.1 Nontoxic single thyroid nodule (principal)
CPT/HCPCS: 76536

== ENCOUNTER 2024-10-09 07:14 | Outpatient (CLI) | payer OTHER, SELFPAY ==
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
--- OUTSIDE RECORDS SUMMARY | 2024-10-02 13:27 | XMS_ITS ---
Author Organization [facility] Address [address] [facility] [facility] [address] [place] [phone] Care Team Providers Care Tomographic Tech Name Role Phone Avinash Knight Primary Care Provider [phone] REASON FOR VISIT Test Results* Encounters Encounter Location Date Provider Diagnosis [facility] [address] [facility] [address] [place] [id number] 10/02/2024 Avinash Knight Elevated liver enzymes R74.8 Assessments Encounter Date Diagnosis (ICD Code) Assessment Notes Treatment Notes Treatment Clinical Notes Section Notes 10/02/2024 Elevated liver enzymes (ICD-10 - R74.8) Plan Of Treatment No Information Progress Notes * KAIT ONEALDOB:1980 (43 yo M)Acc No.[id number]:10/02/2024 Patient: Alba LIAO KAIT BYRNE :1980 A ge:43 Y S ex:Male [address] [place] [address] Subjective: * Chief Complaints: * T est Results* * Medical History: * Surgical History: * Hospitalization/Major Diagno stic Procedure: * Medications: Objective: * Vitals: * Physical Examination: Assessment: * Assessment: 1. E levated liver enzymes - R74.8 Plan: * Treatment: * Procedure Codes: * true * Date: Generated for Printi ng/Faxing/eTransmitting on: 0 10/09/2024 07:15 AM EDT
--- OUTSIDE RECORDS SUMMARY | 2024-10-09 07:15 | XMS_ITS | Referral Summary ---
Author Organization [employer] ([place], [place], [place], [place]) Address [address] [place] [address] Care Team Providers Care Director Of Psychiatry Name Role Phone Skip Knight MD Primary Care Provider [phone]- [phone] Allergies No known active allergies Medications bisoprolol [...] Date Feroz rded Speak language other than Citizen Of [place] at home Not on file 04/06/2023 Want help with school or training Not on file 04/06/2023 Substance Use Answer Date Recorded Used prescription meds for non-medical reasons N ot on file 04/06/2023 Used illegal drugs past 12 months Not on file 04/06/2023 Sex and Gender Information Value Date Recorded Sex Assigned at Not on file 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
--- NOTE | 2024-10-09 07:16 | US_ITS ---
FINAL REPORT CLINICAL HISTORY: ELEVATED LIVER ENZYMES COMPARISON: None FINDINGS: Sonographic images of the right upper quadrant were obtained. The pancreas is partially obscured. There is fatty infiltration of the liver. The liver is normal in size. There is no focal lesion identified. The gallbladder appears normal without evidence of gallstones.There is no evidence of biliary ductal dilatation.The common duct measures 2 mm. Limited images of the right kidney are unremarkable. IMPRESSION: Fatty infiltration of liver. No evidence of biliary obstruction. Reviewed, Interpreted and Dictated by Kieran Nielsen MD Transcribed by Kassi Waters Authenticated and [facility]
--- OUTSIDE RECORDS SUMMARY | 2024-10-09 07:16 | XMS_ITS | Clinical Summary ---
Author Organization [facility] ([place], [place], [place], [place]) Address [address] [place] [address] Care Team Providers Care Dinkey Press Operator Name Role Phone Skip Knight MD Primary Care Provider [phone]- [phone] Allergies No known active allergies Medications bisoprolol [...] Date Feroz rded Speak language other than [place] at home Not on file 04/06/2023 Want help with school or training Not on file 04/06/2023 Substance Use Answer Date Recorded Used prescription meds for non-medical reasons N ot on file 04/06/2023 Used illegal drugs past 12 months Not on file 04/06/2023 Sex and Gender Information Value Date Recorded Sex Assigned at Not on file 

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
--- OUTSIDE RECORDS SUMMARY | 2024-10-09 07:17 | XMS_ITS | Data Portability ---
Author Organization [facility] - GEORGE - Leslie & LEXII Amanda ADMIN Address [address] [place] [id number] Care Team Providers Care Quill Layer Name Role Phone JEBSADI Primary Care Provider [phone] Assessment No assessment recorded. Plan of Treatment Reminders Order Date Submit Date Provider Last Modified By Organization Details Last Modified Time Details Appointments None recorded. Lab RPR (rapid plasma reagin), serum 2023 [facility], [address] [facility], [place], [address], 4 08:21:56 HIV 1+2 Ab + HIV1 p24 Ag, quantitati ve immunoassa y, serum 2023 [facility], [address] [facility], [place], [address], 4 10:16:21 hepatitis C virus Ab, serum 2023 [email or web address] [facility], [address] [facility], [place], [address], 4 11:39:42 CBC w/ auto diff 2023 [facility], [address] [facility], [place], [address], 4 14:35:37 CMP, serum or plasma 2023 [facility], [address] , [place], [address], 15:53:06 infectious disease panel [address] [facility], [address], [place], [address], 15:32:27 infectious disease panel [address] [facility], [address], [place], [address], 15:30:32 vitamin B12, serum [address] [facility], [address], [place], [address], 11:39:43 vitamin D, 25-hydroxy , total, serum 2023 [email or web address] [id number] [facility], [address] , [place], [address], 11:39:43 magnesium, serum or plasma 2023 [facility], [address] [place], [address], 10:28:51 Referral None recorded. Procedures None recorded. Surgeries None recorded. Imaging None recorded. Medication Orders None recorded. Patient TargetsNo targets recorded. Patient InstructionsNo instructions recorded. Reason for Referral None Reported. Results Created Date Observation Date Name Description Value Unit Range Abnormal Flag Note LastModifiedBy Organization Detail LastModifiedTime 01/24/20 24 01/24/2024 CBC AUTO W DIFF WBC 8.0 K/uL 4.0-10 .5 Not Available [facility] ([facility]) [address] , [place], [address], 01/24/2024 14:35:37 01/24/2001/24/2024 CBC AUTO W DIFF RBC 4.4 M/mm3 4.7-6. 1 low Not Available [facility] ([facility]) [address] , [place], [address], 01/24/2024 14:35:37 01/24/2001/24/2024 CBC AUTO W DIFF HGB 14.1 gm/dL 13.5-1 8.0 Not Available [facility] ([facility]) [address] , [place], [address], 01/24/2024 14:35:37 01/24/2001/24/2024 CBC AUTO W DIFF HCT 41.9 % 42.0-5 2.0 low Not Available [facility] ([facility]) [address] , [place], [address], 01/24/2024 14:35:37 01/24/20 24 01/24/2024 CBC AUTO W DIFF MCV 94.4 fL 78-100 Not Available [facility] ([facility]) [address] , [place], [address], 01/24/2024 14:35:37 01/24/20 24 01/24/2024 CBC AUTO W DIFF MCH 31.8 pg 27-31 high Not Available [facility] ([facility]) [address] , [place], [address], 01/24/2024 14:35:37 01/24/2001/24/2024 CBC AUTO W DIFF MCHC 33.7 g/dL 32-36 Not Available [facility] ([facility]) [address] , [place], [address], 01/24/2024 14:35:37 01/24/20 24 01/24/2024 CBC AUTO W DIFF RDW 12.3 % 11.5-1 4.0 Not Available [facility] ([facility]) [address] , [place], [address], 01/24/2024 14:35:37 01/24/2001/24/2024 CBC AUTO W DIFF platelet count 290 K/uL 150-45 0 Not Available [facility] ([facility]) [address], [place], [address], 01/24/2024 14:35:37 01/24/2001/24/2024 CBC AUTO W DIFF MPV 9.2 fL 6-9.5 Not Available [facility] ([facility]) [address], [place], [address], 01/24/2024 14:35:37 01/24/2001/24/2024 CBC AUTO W DIFF neutrophil% 58.7 % 43-65 Not Available [facility] ([facility]) [address], [place], [address], 01/24/2024 14:35:37 01/24/2001/24/2024 CBC AUTO W DIFF lymphocyte% 30.3 % 20.5-4 5.5 Not Available [facility] ([facility]) [address] , [place], [address], 01/24/2024 14:35:37 01/24/2001/24/2024 CBC AUTO W DIFF monocyte% 8.0 % 5.5-11 .7 Not Available [facility] ([facility]) [address] , [place], [address], 01/24/2024 14:35:37 01/24/2001/24/2024 CBC AUTO W DIFF eosinophil% 2.0 % 0.9-2. 9 Not Available [facility] ([facility]) [address], [place], [address], 01/24/2024 14:35:37 01/24/2001/24/2024 CBC AUTO W DIFF basophil% 0.6 % 0.2-1. 0 Not Available [facility] ([facility]) [address] [place], [address], 01/24/2024 14:35:37 01/24/2001/24/2024 CBC AUTO W DIFF immature granulocytes % 0.4 % 0.0-0. 8 Not Available [facility] ([facility]) [address] [place], [address], 01/24/2024 14:35:37 01/24/2001/24/2024 CBC AUTO W DIFF nucleated red blood cells % 0.0 % Not Available [facility] ([facility]) [address] [place], [address], 01/24/2024 14:35:37 01/24/20 24 01/24/2024 CBC AUTO W DIFF neutrophil# 4.7 K/uL 2.2-4. 8 Not Available [facility] ([facility]) [address] [place], [address], 01/24/2024 14:35:37 01/24/20 24 01/24/2024 CBC AUTO W DIFF lymphocyte# 2.4 cell/ mcL 1.3-2. 9 Not Available [facility] ([facility]) [address] [place], [address], 01/24/2024 14:35:37 01/24/2001/24/2024 CBC AUTO W DIFF monocyte# 0.6 cell/ mcL 0.3-0. 8 Not Available [facility] ([facility]) [address] [place], [address], 01/24/2024 14:35:37 01/24/20 24 01/24/2024 CBC AUTO W DIFF eosinophil# 0.2 cell/ mcL 0-0.2 Not Available [facility] ([facility]) [address] [place], [address], 01/24/2024 14:35:37 01/24/20 24 01/24/2024 CBC AUTO W DIFF basophil# 0.1 cell/ mcL 0.0-1. 0 Not Available [facility] ([facility]) [address], [place], [address], 01/24/2024 14:35:37 01/24/20 24 01/24/2024 CBC AUTO W DIFF immature gramulocytes # 0.03 K/uL Not Available [facility] ([facility]) [address], [place], [address], 01/24/2024 14:35:37 01/24/20 24 01/24/2024 CBC AUTO W DIFF nucleated red blood cells # 0.00 K/uL Not Available [facility] ([facility]) [address], [place], [address], 01/24/2024 14:35:37 01/24/20 24 01/24/2024 CBC AUTO W DIFF manual differential NO Not Available [facility] ([facility]) [address], [place], [address], 01/24/2024 14:35:37 01/24/20 24 01/24/2024 COMP METAB OLIC PANEL sodium 138 mmol/ L 136-14 5 Not Available [facility] ([facility]) [address], [place], [address], 01/24/2024 15:53:06 01/24/2001/24/2024 COMP METAB OLIC PANEL potassium 4.3 mmol/ L 3.6-5. 0 Not Available [facility] ([facility]) [address], [place], [address], 01/24/2024 15:53:06 01/24/2001/24/2024 COMP METAB OLIC PANEL chloride 100 mmol/ L 98-107 Not Available [facility] ([facility]) [address], [place], [address], 01/24/2024 15:53:06 01/24/2001/24/2024 COMP METAB OLIC PANEL carbon dioxide 26.8 mmol/ L 21.0-3 2.0 Not Available [facility] ([facility]) [address], [place], [address], 01/24/2024 15:53:06 01/24/2001/24/2024 COMP METAB OLIC PANEL anion gap 15.5 Not Available [facility] ([facility]) [address], [place], [address], 01/24/2024 15:53:06 01/24/2001/24/2024 COMP METAB OLIC PANEL glucose 91 mg/dL 70-120 Not Available [facility] ([facility]) [address], [place], [address], 01/24/2024 15:53:06 01/24/2001/24/2024 COMP METAB OLIC PANEL BUN 17 mg/dL 7-18 Not Available [facility] ([facility]) [address], [place], [address], 01/24/2024 15:53:06 01/24/2001/24/2024 COMP METAB OLIC PANEL creatinine 1.2 mg/dL 0.6-1. 3 Not Available [facility] ([facility]) [address], [place], [address], 01/24/2024 15:53:06 01/24/2001/24/2024 COMP METAB OLIC PANEL [...] hines ing kiney funct ion. Not Available [facility] ([facility]) [address], [place], [address], 01/24/2024 15:53:06 01/24/20 24 01/24/2024 COMP METAB OLIC PANEL total protein 9.1 g/dL 6.4-8. 2 high Not Available [facility] ([facility]) [address] [facility], [place], [address], 01/24/2024 15:53:06 01/24/20 24 01/24/2024 COMP METAB OLIC PANEL albumin 4.4 g/dL 3.4-5. 0 Not Available [facility] ([facility]) [address] [facility], [place], [address], 01/24/2024 15:53:06 01/24/20 24 01/24/2024 COMP METAB OLIC PANEL globulin 4.7 Not Available [facility] ([facility]) [address] [facility], [place], [address], 01/24/2024 15:53:06 01/24/20 24 01/24/2024 COMP METAB OLIC PANEL alb/glob ratio 0.9 0.7-2 Not Available [facility] ([facility]) [address], [place], [address], 01/24/2024 15:53:06 01/24/20 24 01/24/2024 COMP METAB OLIC PANEL calcium 9.7 mg/dL 8.5-10 .5 Not Available [facility] ([facility]) [address], [place], [address], 01/24/2024 15:53:06 10/31/01/24/2024 COMP METAB OLIC PANEL bilirubin total 0.60 mg/dL 0.10-1 .00 Not Available [facility] ([facility]) [address], [place], [address], 01/24/2024 15:53:06 01/24/20 24 01/24/2024 COMP METAB OLIC PANEL AST (SGOT) 22 U/L 0-37 Not Available [facility] ([facility]) [address], [place], [address], 01/24/2024 15:53:06 01/24/2001/24/2024 COMP METAB OLIC PANEL ALT (SGPT) 44 U/L 0-65 Not Available [facility] ([facility]) [address], [place], [address], 01/24/2024 15:53:06 01/24/20 24 01/24/2024 COMP METAB OLIC PANEL alk phosphatase 67 U/L 46-116 Not Available [facility] ([facility]) [address], [place], [address], 01/24/2024 15:53:06 01/24/2001/24/2024 MAGNE SIUM magnesium 2.3 mg/dL 1.8-2. 4 Not Available [facility] ([facility]) [address] [facility], [place], [address], 01/24/2024 15:53:08 01/24/20 24 01/24/2024 VITAM IN D, 25-HY DROXY vitamin D, 25-hydroxy 20.5 NG/mL 30.0-1 00.0 low Not Available [facility] ([facility]) [address] [place], [address], 01/24/2024 15:53:09 01/24/20 24 01/24/2024 VITAM IN B12 vitamin B12 357 pg/mL 193-98 6 *Note : Refer ence Rivera Sargent. New Test Metho d in use. Not Available [facility] ([facility]) [address] [facility], [place], [address], 01/24/2024 15:53:10 01/24/20 24 01/25/2024 RPR QUAL RPR NON REACTI VE non reacti ve Perfo rmed at: [facility] n [address] [facility], [facility] [id number] Lab Direc tor: Av redman PhD, Phone : [phone] Not Available [facility] ([facility]) [address] [facility], [place], [address], 01/25/2024 08:21:55 01/24/20 24 01/25/2024 HIV AB/P2 4 AG WITH REFLE X HIV screen 4TH generation wrfx Non Reacti ve non reacti ve HIV-1 /HIV- 2 antib odies and HIV-1 p24 antig en were NOT detec west. There is no labor atory evide nce of HIV infec tion. HIV Negat ronald [facility] [address] [facility], [facility], [place] [id number] 4816 Lab Direc tor: Av redman PhD, Phone : [phone] Not Available [facility] ([facility]) [address] [facility], [place], [address], 01/25/2024 09:16:34 01/24/20 24 01/25/2024 HCV ANTIB [...] e HCV infec tion. [facility] [address] [employer] [facility], [facility], [place] [id number] Lab Direc tor: Av redman PhD, Phone : [phone] Not Available [facility] ([facility]) [address], [place], [address], 01/25/2024 09:16:35 Result Notes None recorded. Procedures Surgical History Date Name Laterality Status Provider Name and Address Organization Details Recorded Time 1 Hip Surgery completed Estefany Gasca [facility] & [place] 02/05/2024 15:02:21 Imaging Results None recorded. Procedure [...] Address Organization Details Last Updated DateTime 4 324650. 19 g 98.1 [degF] 64 /min 96 % 96 % 125/80 mm[Hg] Marivel Boyd [place] - [facility] - [place] & [place] 4 13:03:39 Date Recorded Body height Oxygen saturation Oxygen saturation in Arterial blood by Pulse oximetry Body temperature Body mass index (BMI) Body weight Heart rate Systolic And Diastolic Provider Name and Address Organization Details Last Updated DateTime 4 182.88 cm 99 % 99 % 96.5 [degF] 39 kg/m2 076817. 45 g 70 /min 120/80 mm[Hg] Estefany Gasca [place] - [facility] - [place] & [place] 4 14:46:41 Social History Question Answer Notes LastModified by [employer] ion Details LastModified Time Do You Have An Advance Directive? No [email or web address] Information not available 02/05/2024 Are You Blind Or Do You Have Difficulty Seeing? No [email or web address] Information not available 02/05/2024 What Was The Date Of Your Most Recent Tobacco Screening? 01/22/2024 [email or web address] Information not available 02/05/2024 Are You Passively Exposed To Smoke? No [email or web address] Information not available 02/05/2024 How Much Tobacco Do You Smoke? No [email or web address] Information not available 02/05/2024 Sex: Unknown Functional Status Question Answer Note LastModified by Organizat ion Details LastModified Time Do you use any illicit or recreational drugs? No [email or web address] Information not available 02/05/2024 What is your level of alcohol consumption? Occasional [email or web address] Information not available 02/05/2024 Do you or have you ever used smokeless tobacco? Former smokeless tobacco user [email or web address] Information not available 02/05/2024 What is your exercise level? Occasional [email or web address] Information not available 02/05/2024 Mental Status Question Answer Note LastModified by Organization D etails LastModified Time Do you feel stressed (tense, restless, nervous, or anxious, or unable to sleep at night)? [id number] [email or web address] Information not available 02/05/2024 Family History Nothing Reported. Medical History Condition Response Hypertension Y High Cholesterol Y Past Encounters Encounter ID Performer Location Encounter Start Date Encounter Closed Date Diagnosis/Indication Diagnosis SNOMED-CT Code Diagnosis ICD10 Code Diagnosis Note [id number] Joanne Machado in, [employer] [facility] Infectiou s Disease -[address] [place] [address] 01/24/2024 12:56:25 01/24/2024 13:52:24 At high risk of sexually transmitted infection 190522389 Z91.89 Will run testing for STD/STI. If all tests are negative, no follow up required. Patient agrees with plan of care. Paresthesia 51681840 R20 .2 Patient is scheduled with neurology. Follow up with specialty and PCP. Health Concerns Section Related Observation LastModified by Organization Detai ls LastModified Time None Recorded Concern Status LastModified by Organization Details LastModified Time None Recorded Advance Directives Directive N: Payers Insurance Date Sequence Insurance Name Policy Number Policy Cunha Covered Member ID Cunha Member ID Guarantor Name 02/18/2020 1 [facility] [id number] [employer] [id number] [employer] 01/29/2024 1 [employer] [id number] [employer] [id number] [employer] 01/24/2024 1 [employer] (POS) Bi Oneal [id number] [employer] Notes Date Note Type Note [...] loss. Joanne Metcalf, CHRIS [address], [place], [address], [facility] - [place] - [place] & [place] 01/24/2024 14:11:13
--- OUTSIDE RECORDS SUMMARY | 2024-10-09 07:17 | XMS_ITS | Encounter Summary ---
Author Organization Healthcare Address [address] [place] [address] Care Team Providers Care Street Light Wirer Name Role Phone Skip Knight MD Primary Care Provider [phone] Reason for Visit * Reason Onset Date Comments Med Refill 09/29/2020 Encounter Details Date Type Department Care Team (Late st Contact Info) Description 09/29/2020 [facility] [address] [place] [address] Colin Adams MD [address] [place] [address] Social History Tobacco Use Types [...] called in yet. Preferred Pharmacy & Location: [facility] Days of medication remaining (if under 3 days please manuelito as urgent): Best contact number and optimal time of day to reach caller: Additional comments/information from caller: [phone] Note: Please do not reply to this message. Follow-up communication and further actions as a result of this message need to be communicated with the patient directly, if the patient is not active onMyChart. If the patient is active on MyChart, they will receive notification of the communication/outcome via [employer]. documented in this encounter Plan of Treatment Not on file documented as of this encounter Visit Diagnoses Not on filedocumented in this encounter Additional Health Concerns Assessment Noted Time A fall risk assessment has been complete d for the patient 09/22/2020 9:59 AM EDT documented as of this encounter Care Teams Street Light Wirer Relationship Specialty Start Date End Date Skip Knight MD [address] [place] [address] PCP - General 09/22/20 documented as of this encounter
--- OUTSIDE RECORDS SUMMARY | 2024-10-09 07:17 | XMS_ITS | Data Portability ---
Author Organization [facility] WENDY Austin HOOPPOLE CLOSED Address [address] [facility] [address] [place] [address] Care Team Providers Care Nursing Educator Name Role Phone ADRIANA ADEN Primary Care [...] numbness and dysesthesias with a neurologist in [place], [place]. 7. Patient will be referred for [...] None recorded. Lab aldolase, serum 2023 024 [facility], [address] [place] [address], [place], [address], 4 01:00:24 CK (creatine kinase), total, serum 2023 [facility], [address] [place] [address], [address], 4 14:45:18 vitamin B1 (thiamine) , blood 2023 [facility], [address] [place] [address], [address], 4 07:42:04 copper, serum or plasma 2023 [facility], [address] [place] [address], [address], 4 16:43:19 vitamin B6 (pyridoxin e), plasma 2023 [facility], [address] [place] [address], [address], 4 09:42:30 protein electropho resis panel, serum or plasma 2023 [facility], [address] [place] [address], [address], 4 09:44:59 iron + total iron-newton ng capacity (TIBC), serum 2023 024 [facility], [address] [place] [address], [address], 4 16:26:29 ferritin, serum or plasma 2023 024 [facility], [address] [place] [address], [address], 4 16:26:27 vitamin B12 + folate, serum or blood 2023 024 [facility], [address] [place] [address], [address], 4 16:05:17 Referral infectious disease specialist referral 2023 024 [email or web address] [facility], [address], [place], [address], 4 10:04:11 Procedures nerve conduction study/EMG, upper extremity (PROC) 2023 024 [email or web address] Krystal Lorenzo , [address] [place], [address], 5 08:38:06 nerve conduction study/EMG, lower extremity (PROC) 2023 024 [email or web address] Krystal Lorenzo , [address] [place], [address], 5 08:38:06 Surgeries None recorded. Imaging None recorded. Medication Orders None recorded. Patient TargetsNo targets recorded. Patient Instructions Encounter Date Encounter Id Patient Instructions Last Modified By Organization Details Last Modified Time 01/16/2024 [id number] seasonal allergies: care instructions csuttor Not available [...] 10*3/ uL 3.8-10 .8 normal Not Available [facility] [address] [place], [address], 01/14/2024 18:30:16 01/14/2001/14/2024 COMPL ETE BLOOD COUNT red blood cells 4.16 10*6/ uL 4.20-5 .80 low Not Available [facility] [address] [place] [address], [address], 01/14/2024 18:30:16 01/14/20 24 01/14/2024 COMPL ETE BLOOD COUNT hemoglobin 13.4 g/dL 14.0-1 8.0 low Not Available [facility] [address] [place] [address], [address], 01/14/2024 18:30:16 01/14/20 24 01/14/2024 COMPL ETE BLOOD COUNT hematocrit 39.6 % 40.0-5 2.0 low Not Available [facility] [address] [place] [address], [address], 01/14/2024 18:30:16 01/14/20 24 01/14/2024 COMPL ETE BLOOD COUNT MCV 95 fL 80-100 normal Not Available [facility] [address] [place] [address], [address], 01/14/2024 18:30:16 01/14/20 24 01/14/2024 COMPL ETE BLOOD COUNT MCH 32 pg 26-35 normal Not Available [facility] [address] [place] [address], [address], 01/14/2024 18:30:16 01/14/20 24 01/14/2024 COMPL ETE BLOOD COUNT MCHC 34 g/dL 32-36 normal Not Available [facility] [address] [place] [address], [address], 01/14/2024 18:30:16 01/14/20 24 01/14/2024 COMPL ETE BLOOD COUNT RDW 12.7 % 11.0-1 5.0 normal Not Available [facility] [address] [place] [address], [address], 01/14/2024 18:30:16 01/14/20 24 01/14/2024 COMPL ETE BLOOD COUNT MPV 8.3 fL 6.2-10 .5 normal Not Available [facility] [address] [place] [address], [address], 01/14/2024 18:30:16 01/14/20 24 01/14/2024 COMPL ETE BLOOD COUNT platelet count 264 10*3/ uL 150-40 0 normal Not Available [facility] [address] [place] [address], [address], 01/14/2024 18:30:16 01/14/20 24 01/14/2024 COMPL ETE BLOOD COUNT neutrophil,a bsolute 3.9 10*3/ uL 1.6-8. 4 normal Not Available [facility] [address] [place] [address], [address], 01/14/2024 18:30:16 01/14/20 24 01/14/2024 COMPL ETE BLOOD COUNT lymphocyte,a bsolute 2.5 10*3/ uL 0.4-5. 1 normal Not Available [facility] [address] [place] [address], [address], 01/14/2024 18:30:16 01/14/20 24 01/14/2024 COMPL ETE BLOOD COUNT monocyte,abs olute 0.7 10*3/ uL 0.0-1. 2 normal Not Available [facility] [address] [place] [address], [address], 01/14/2024 18:30:16 01/14/20 24 01/14/2024 COMPL ETE BLOOD COUNT eosinophil,a bsolute 0.2 10*3/ uL 0.0-0. 8 normal Not Available [facility] [address] [place] [address], [address], 01/14/2024 18:30:16 01/14/20 24 01/14/2024 COMPL ETE BLOOD COUNT basophil,abs olute 0.1 10*3/ uL 0.0-0. 3 normal Not Available [facility] [address] [place] [address], [address], 01/14/2024 18:30:16 01/14/20 24 01/14/2024 COMPL ETE BLOOD COUNT % neutrophils 52.7 % 42.0-7 8.0 normal Not Available [facility] [address] [place] [address], [address], 01/14/2024 18:30:16 01/14/20 24 01/14/2024 COMPL ETE BLOOD COUNT % lymphocytes 34.0 % 11.0-4 7.0 normal Not Available [facility] [address] [place] [address], [address], 01/14/2024 18:30:16 01/14/20 24 01/14/2024 COMPL ETE BLOOD COUNT % monocytes 10.0 % 0.0-11 .0 normal Not Available [facility] [address] [place] [address], [address], 01/14/2024 18:30:16 01/14/20 24 01/14/2024 COMPL ETE BLOOD COUNT % eosinophils 2.4 % 0.0-7. 0 normal Not Available [facility] [address] [place] [address], [address], 01/14/2024 18:30:16 01/14/20 24 01/14/2024 COMPL ETE BLOOD COUNT % basophils 0.9 % 0.0-3. 0 normal Not Available [facility] [address] [place] [address], [address], 01/14/2024 18:30:16 01/14/20 24 01/14/2024 COMPL ETE BLOOD COUNT nucleated red cells 0.0 % 0.0-0. 9 normal Not Available [facility] [address] [place] [address], [address], 01/14/2024 18:30:16 01/14/20 24 01/14/2024 COMPL ETE BLOOD COUNT nucleated RBCs, absolute 0.00 10*3/ uL not estab. normal Not Available [facility] [address] [place], [address], 01/14/2024 18:30:16 01/14/20 24 01/14/2024 LIPID PROFI LE HDL cholesterol 40 mg/dL 40-242 normal Not Available [facility] [address] [place], [address], 01/14/2024 18:33:57 01/14/2001/14/2024 LIPID PROFI LE triglyceride s 171 mg/dL 0-149 high TRIGL YCERI DE RANGE S HUGO L: < 150 BORDE RLINE HIGH: 150 - 199 HIGH: 200 - 499 VERY HIGH: > OR = 500 Not Available [facility] [address] [place], [address], 01/14/2024 18:33:57 01/14/20 24 01/14/2024 LIPID PROFI LE cholesterol 213 mg/dL 0-199 high MANPREET STERO L (TOTA L) RANGE S PEDRITO ABLE: < 200 BORDE RLINE : 200 - 239 HIGHE R RISK: > 239 Not Available [facility] [address] [place], [address], 01/14/2024 18:33:57 01/14/20 24 01/14/2024 LIPID PROFI LE LDL cholesterol 139 mg/dL _(sofy c) 0-99 high LDL MANPREET STERO L RANGE S OPTIM AL: < 100 NEAR/ ABOVE OPTIM AL: 100 - 129 BORDE RLINE HIGH: 130 - 159 HIGH: 160 - 189 VERY HIGH: > OR = 190 Not Available [facility] [address] [place], [address], 01/14/2024 18:33:57 01/14/20 24 01/14/2024 COMP. METAB OLIC PANEL glucose 105 mg/dL 74-100 high Not Available [facility] [address] [place], [address], 01/14/2024 18:34:00 01/14/20 24 01/14/2024 COMP. METAB OLIC PANEL blood urea nitrogen 15 mg/dL 6-20 normal Not Available [facility] [address] [place] [address], [address], 01/14/2024 18:34:00 01/14/20 24 01/14/2024 COMP. METAB OLIC PANEL creatinine 1.04 mg/dL 0.70-1 .28 normal Not Available [facility] [address] [place] [address], [address], 01/14/2024 18:34:00 01/14/20 24 01/14/2024 COMP. METAB OLIC PANEL BUN/creatini ne ratio 14 (calc ) 10-20 normal Not Available [facility] [address] [place] [address], [address], 01/14/2024 18:34:00 01/14/20 24 01/14/2024 COMP. METAB OLIC PANEL sodium 137 mmol/ L 136-14 5 normal Not Available [facility] [address] [place] [address], [address], 01/14/2024 18:34:00 01/14/20 24 01/14/2024 COMP. METAB OLIC PANEL potassium 3.9 mmol/ L 3.4-5. 0 normal Not Available [facility] [address] [place] [address], [address], 01/14/2024 18:34:00 01/14/20 24 01/14/2024 COMP. METAB OLIC PANEL chloride 101 mmol/ L 98-107 normal Not Available [facility] [address] [place] [address], [address], 01/14/2024 18:34:00 01/14/20 24 01/14/2024 COMP. METAB OLIC PANEL carbon dioxide 23 mmol/ L 22-31 normal Not Available [facility] [address] [place] [address], [address], 01/14/2024 18:34:00 01/14/20 24 01/14/2024 COMP. METAB OLIC PANEL anion gap 13 (calc ) 7-25 normal Not Available [facility] [address] [place] [address], [address], 01/14/2024 18:34:00 01/14/20 24 01/14/2024 COMP. METAB OLIC PANEL calcium 9.6 mg/dL 8.6-10 .2 normal Not Available [facility] [address] [place] [address], [address], 01/14/2024 18:34:00 01/14/20 24 01/14/2024 COMP. METAB OLIC PANEL total protein 8.0 g/dL 6.4-8. 3 normal Not Available [facility] [address] [place] [address], [address], 01/14/2024 18:34:00 01/14/20 24 01/14/2024 COMP. METAB OLIC PANEL albumin 4.6 g/dL 3.5-5. 2 normal Not Available [facility] [address] [place] [address], [address], 01/14/2024 18:34:00 01/14/20 24 01/14/2024 COMP. METAB OLIC PANEL globulin 3.4 1.5-4. 5 normal Not Available [facility] [address] [place] [address], [address], 01/14/2024 18:34:00 01/14/20 24 01/14/2024 COMP. METAB OLIC PANEL albumin/glob ulin ratio 1.4 (calc ) 1.1-2. 5 normal Not Available [facility] [address] [place] [address], [address], 01/14/2024 18:34:00 01/14/20 24 01/14/2024 COMP. METAB OLIC PANEL bilirubin, total 0.7 mg/dL 0.1-1. 2 normal Not Available [facility] [address] [place], [address], 01/14/2024 18:34:00 01/14/20 24 01/14/2024 COMP. METAB OLIC PANEL alkaline phosphatase 67 U/L 40-129 normal Not Available [facility] [address] [place], [address], 01/14/2024 18:34:00 01/14/20 24 01/14/2024 COMP. METAB OLIC PANEL AST 30 U/L 0-40 normal Not Available [facility] [address] [place], [address], 01/14/2024 18:34:00 01/14/20 24 01/14/2024 COMP. METAB OLIC PANEL ALT 40 U/L 0-41 normal Not Available [facility] [address] [place], [address], 01/14/2024 18:34:00 01/14/20 24 01/14/2024 COMP. METAB OLIC PANEL GFR 92 >= 60 normal NOT E New calcu latio n for GFR (CKD- EPI 2020) is formu lated witho ut race adjus tment facto rs at the recom menda tion of the [facility] . This calcu latio n has not been valid ated in pregn ant women . For pedia tric patie nts refer to https ://micky ahmadi.abby cornell.o rg/pr aimee nieto s/KDO QI/gf r_cal culat orPed Not Available [facility] [address] [place], [address], 01/14/2024 18:34:00 01/14/20 24 01/14/2024 TSH TSH 0.835 u[IU] /mL 0.270- 4.200 normal Not Available [facility] [address] [place], [address], 01/14/2024 18:45:38 01/16/20 24 01/16/2024 B12/F OLIC ACID PANEL folic acid 8.0 NG/mL 4.6-34 .8 normal Not Available [facility] [address] [place] [address], [address], 01/16/2024 16:05:17 01/16/20 24 01/16/2024 B12/F OLIC ACID PANEL vitamin B12 406 pg/mL 232-12 45 normal Not Available [facility] [address] [place] [address], [address], 01/16/2024 16:05:17 01/16/20 24 01/16/2024 BEV TIN ferritin 134 NG/mL 30-400 normal Not Available [facility] [address] [place] [address], [address], 01/16/2024 16:26:27 01/16/20 24 01/16/2024 IRON PANEL -TOTA L AND TIBC iron 74 ug/dL 59-158 normal Not Available [facility] [address] [place] [address], [address], 01/16/2024 16:26:29 01/16/20 24 01/16/2024 IRON PANEL -TOTA L AND TIBC total iron binding cap. 336 ug/dL _(sofy c) 250-45 0 normal Not Available [facility] [address] [place] [address], [address], 01/16/2024 16:26:29 01/16/20 24 01/16/2024 IRON PANEL -TOTA L AND TIBC unsat.iron binding cap. 262 ug/dL 112-34 7 normal Not Available [facility] [address] [place] [address], [address], 01/16/2024 16:26:29 01/16/20 24 01/16/2024 IRON PANEL -TOTA L AND TIBC % saturation 22 %_(ca lc) 20-50 normal Not Available [facility] [address] [place], [address], 01/16/2024 16:26:29 03/17/20 24 03/17/2024 CREAT INE KINAS E creatine kinase 285 U/L 0-189 high Not Available [facility] [address] [place], [address], 03/17/2024 14:45:18 03/17/20 24 03/18/2024 ALDOL ASE aldolase 5.0 U/L < or = 8.1 normal Not Available [facility] [address] [place], [address], 03/19/2024 01:00:23 03/17/20 24 03/19/2024 PROTE IN ELECT ROPHO RESIS , SERUM protein, total 8.4 g/dL 6.1-8. 1 high Not Available [facility] [address] [place] [address], [address], 03/21/2024 10:45:04 03/17/20 24 03/21/2024 PROTE IN ELECT ROPHO RESIS , SERUM albumin 5.0 g/dL 3.8-4. 8 high Not Available [facility] [address] [place] [address], [address], 03/21/2024 10:45:04 03/17/20 24 03/21/2024 PROTE IN ELECT ROPHO RESIS , SERUM bebnl-5-nbsh ulin 0.3 g/dL 0.2-0. 3 normal Not Available [facility] [address] [place] [address], [address], 03/21/2024 10:45:04 03/17/20 24 03/21/2024 PROTE IN ELECT ROPHO RESIS , SERUM vlaul-4-mwyj ulin 0.6 g/dL 0.5-0. 9 normal Not Available [facility] [address] [place] [address], [address], 03/21/2024 10:45:04 03/17/20 24 03/21/2024 [facility] , [facility] beta 1 globulin 0.5 g/dL 0.4-0. 6 normal Not Available [facility] [address] [place], [address], 03/21/2024 10:45:04 03/17/20 24 03/21/2024 PROTE IN ELECT [facility] RESIS , SERUM beta 2 globulin 0.5 g/dL 0.2-0. 5 normal Not Available [facility] [address] [place], [address], 03/21/2024 10:45:04 03/17/20 24 03/21/2024 PROTE IN ELECT [facility] RESIS , SERUM gamma globulin 1.5 g/dL 0.8-1. 7 normal Not Available [facility] [address] [place], [address], 03/21/2024 10:45:04 03/17/20 24 03/21/2024 PROTE IN ELECT [facility] RESIS , SERUM interpretati on SEE NOTE normal No restr icted band (M-sp anna) seen. Not Available [facility] [address] [place], [address], 03/21/2024 10:45:04 03/17/20 24 03/20/2024 COPPE R, [...] for clini sofy purpo ses. Not Available [facility] [address] [place], [address], 03/20/2024 16:43:19 03/17/20 24 03/22/2024 VITAM IN [...] is used for clini sofy purpo ses. [facility] med fusio n [address] [facility] [address] [facility] [place] [address] [phone] Luis Miguel Taylor MD, PhD Not Available [facility] [address] [place] [address], [address], 03/22/2024 07:42:04 03/17/20 24 03/22/2024 VITAM IN [...] is used for clini sofy purpo ses. [facility] med fusio n [address] [facility] [address] [facility] [place] [address] [phone] Luis Miguel Taylor MD, PhD Not Available [facility] [place], [address], 03/22/2024 09:42:30 04/28/19 25 04/28/2024 nerve condu ction study /EMG, lower extre mity (PROC ) No observ ation record ed. [email or web address] Krystal Davenport Lorenzo DO [address] [place], [address], 04/29/2024 12:21:50 05/13/19 25 05/13/2024 nerve condu ction study /EMG, upper extre mity (PROC ) No observ ation record ed. [email or web address] Krystal Lorenzo DO [address] [place], [address], 05/13/2024 12:34:05 Result Notes None recorded. Problems Name Problem SNOMED Code Status Onset Date Resolution Date Notes Provider Name and Address Organization Details Recorded Time Seasonal allergy 963517830 Active 2016 LESA COOK MD [address] [place] [address], [address], [facility] 7 10:50:42 Hyperlipidemia 55534494 Active 2016 LESA COOK MD [address] [place] [address], [address], [facility] 7 10:50:51 Liver enzymes level above reference range 439549521 Active 2017 LESA COOK MD [address] [place] [address], [address], [facility] 8 08:21:05 Obesity 739998210 Active 2017 LESA COOK MD [address] [place] [address], [address], [facility] 8 09:39:15 Anxiety 30438221 Active 2023 LESA COOK MD [address] [place] [address], [address], [facility] 4 15:48:25 Insomnia 395968922 Active 2023 LESA COOK MD [address] [place] [address], [address], [facility] 4 15:48:27 Hypertensive disorder 99193291 Active 2023 LESA COOK MD [address] [place] [address], [address], [facility] 4 15:48:28 Anemia 799248025 Active 2023 LESA COOK MD [address] [place], [address], [facility] 07:56:53 Problem Notes None recorded. Procedures Surgical History Date Name Laterality Status Provider Name and Address Organization Details Recorded Time 05/13/19 25 Electromyography (EMG) with Nerve Conduction Study (NCV) completed Gibson (Nicky) [facility] 05/13/2024 11:38:40 04/28/19 25 Electromyography (EMG) with Nerve Conduction Study (NCV) completed Gibson (Nicky) [facility] 04/28/2024 15:40:21 Imaging Results None [...] Relief 50 mcg/actuati on nasal spray,suspe nsion [place] 1 spray every day by intranasa l [...] Updated DateTime 5 182.88 cm 41 kg/m2 242044. 9 g 77 /min 99 % 99 % 124/80 mm[Hg] Rosa Duff [facility] 5 15:40:13 Date Recorded Body height Heart rate Systolic And Diastolic Provider Name and Address Organization Details Last Updated DateTime 01/16/2024 182.88 cm 67 /min 112/80 mm[Hg] Dagmar Pinto [facility] 01/16/2024 10:30:19 Date Recorded Body height Body mass index (BMI) Body weight Heart rate Oxygen saturation Oxygen saturation in Arterial blood by Pulse oximetry Systolic And Diastolic Provider Name and Address Organization Details Last Updated DateTime 4 182.88 cm 39.5 kg/m2 927587. 38 g 74 /min 98 % 98 % 120/78 mm[Hg] Breanna Fuller [facility] 4 13:03:47 Social History Question Answer Notes LastModified by Organizat ion Details LastModified Time Tobacco Smoking Status Never Smoker Not Available [facility] 06/09/2024 15:37:01 What Is Your Level Of Caffeine Consumption? Moderate Information not available 03/12/2017 How Much Tobacco Do You Chew? None [email or web address] Information not available 03/20/2018 What Type Of [...] Of Your Most Recent Tobacco Screening? 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 Occasional Information not available 03/12/2017 Mental Status None recorded. Family History Relationship Description Onset Age of this Age Resolved Age Notes LastModified by Organization Details LastModified Time Maternal Grandmother Diabetes mellitus [email or web address] Not available 09:42:30 Paternal Grandmother Leukemia [email or web address] Not available 02/13/2018 09:42:46 Father Hypertensive disorder [email or web address] Not available 2023 13:01:27 Medical History Condition Response Coronary Artery Disease N Other Y Gout N Atrial Fibrillation N Kidney Stones N Parkinson's Disease N Hyperthyroidism N Alzheimer's N Migraines N Hypothyroidism N Depression N COPD N Glaucoma N Anemia N MRSA exposure N Difficulty Swallowing N Neurological Problems Y Meniere's disease N Diabetes N Anxiety Disorder Y Obesity Y Arthritis N Mental Disorder N Tuberculosis N AIDS/HIV N Congestive Heart Failure (CHF) N Cancer N Stroke N Diverticulitis N Asthma N Reflux/GERD N High Cholesterol Y Liver Disease N Heart Disease N Pulmonary Embolism N Fibromyalgia N Hypertension Y Chronic Ear Infections N Osteoporosis N Kidney Disease N Immunizations Vaccine Type Date Status Note Provider Nam e and Address Organization Details Recorded Time Influenza, recombinant, quadrivalent, PF 01/08/2023 dashawn olivarez [facility] 01/14/2024 14:51:59 COVID-19, mRNA, LNP-S, PF, 100 mcg/0.5mL dose or 50 mcg/0.25mL dose 05/27/2020 completed Dagmar Critchley null, [facility] 01/14/2024 14:52:00 COVID-19, mRNA, LNP-S, PF, 100 mcg/0.5mL dose or 50 mcg/0.25mL dose 06/24/2020 completed Dagmar Critchley null, [facility] 01/14/2024 14:52:00 COVID-19, mRNA, LNP-S, PF, 100 mcg/0.5mL dose or 50 mcg/0.25mL dose 03/14/2021 completed Dagmar Critchley null, [facility] 01/14/2024 14:52:00 Tdap 12/01/2014 completed Dagmar Critchley null, [facility] 01/14/2024 14:52:00 Influenza, split virus, trivalent, PF 01/11/2010 completed Dagmar Critchley null, [facility] 01/14/2024 14:52:00 Td (adult) 02/04/2020 completed Dagmar Critchley null, [facility] 01/14/2024 14:52:00 Hep B, adult 04/13/2010 completed Dagmar Critchley null, [facility] 01/14/2024 14:52:00 Hep B, adult 07/22/2009 completed Dagmar Critchley null, [facility] 01/14/2024 14:52:00 Hep B, adult 09/16/2009 completed Dagmar Critchley null, [facility] 01/14/2024 14:52:00 Influenza, split virus, quadrivalent, PF 02/24/2021 completed Dagmar Critchley null, [facility] 01/14/2024 14:52:00 influenza, unspecified formulation 12/25/2023 completed LESA COOK MD [address] [place] [address], [address], [facility] 01/14/2024 15:14:41 influenza, unspecified formulation 01/09/2018 completed Melissa Ramirez null, [facility] 01/10/2018 09:15:09 Past Encounters Encounter ID Performer Location Encounter Start Date Encounter Closed Date Diagnosis/Indication Diagnosis SNOMED-CT Code Diagnosis ICD10 Code Diagnosis Note [id number] LESA COOK MD INTERNAL [facility]IC[facility] CLOSED [address] [place] [address],[place] [place] [address] 03/12/2017 10:45:44 03/12/2017 11:57:54 Obesity 869320799 E66.9 Adult heal th examination 286373704 Z00.00 [id number] LESA COOK MD INTERNAL MEDICINE [facility] CLOSED [address] [place] [address],[place] [address] 06/13/2017 15:25:31 06/13/2017 16:06:25 Fever 009860902 R50.9 Influenza caused by Influenza B virus 54966423 J10.1 On 06/13/17, patient tested positive for type B influenza. At that time, he was prescribed Tamiflu. Seasonal allergy 7318407 04 J30.2 Hyperlipidemia 98508606 E78.5 [id number] LESA COOK MD INTERNAL MEDICINE [facility] CLOSED [address] [place] [address],[place] [facility] [place] [address] 06/21/2017 08:16:52 06/21/2017 08:34:06 Influenza caused by Influenza B virus 79905751 J10.1 On 06/13/17, patient tested positive for type B influenza. At that time, he was prescribed Tamiflu. On 06/21/17, patient reported feeling much better after a course of Tamiflu. Seasonal allergy 4048740 04 J30.2 He uses Zyrtec and Flonase as needed for allergy symptoms. Hyperlipidemia 61290037 E78.5 On 08/04/10, total cholestero l was [...] Liver enzy mes level above reference range 092589586 R74.8 On 06/14/17, his alkaline phosphatas e was 65, AST 40, ALT 63 for indices normal 9-46). [id number] LESA COOK MD INTERNAL MEDICINE [facility] CLOSED [address] [place] [address], [place] [address] 10/03/2017 09:15:45 10/03/2017 09:36:49 Seasonal allergy 883858782 J30.2 He uses Zyrtec and Flonase as needed for allergy symptoms. Hyperlipidemia 93667823 E78.5 On 08/04/10, total cholestero l was [...] Liver enzy mes level above reference range 841815489 R74.8 On 06/14/17, his alkaline phosphatas e was 65, AST 40, ALT 63 (normal 9-46). [id number] LESA COOK MD INTERNAL MEDICINE [facility] CLOSED [address] [place] [address],[place] [address] 10/08/2017 09:18:17 10/08/2017 09:54:59 Hyperlipidemia 02283359 E78.5 On 08/04/10, total cholestero l was [...] triglyceri mihaela 117, LDL 171. Seasonal allergy 5163925 04 J30.2 He uses Zyrtec and Flonase as needed for allergy symptoms. Liver enzy mes level above reference range 387070970 R74.8 On 06/14/17, his alkaline phosphatas e was 65, AST 40, ALT 63 (normal 9-46). On 10/03/17, his alkaline phosphatas e was 67, AST 42 (normal 10-40), ALT 82 (normal 9-46). Obesity 728447356 E66.9 On 10/08/17, his starting weight was 299 pounds. [id number] LESA COOK MD INTERNAL MEDICINE [facility] CLOSED [address] [facility] [address] 11/08/2017 14:44:19 11/08/2017 15:09:58 Obesity 114669579 E66.9 Patient lost 17 pounds since starting Adipex on 10/08/17. On 10/08/17, his starting weight was 299 pounds. Hyperlipidemia 54569615 E78.5 On 08/04/10, total cholestero l was [...] triglyceri mihaela 117, LDL 171. Seasonal allergy 4000752 04 J30.2 He uses Zyrtec and Flonase as needed for allergy symptoms. Liver enzy mes level above reference range 332708259 R74.8 On 06/14/17, his alkaline phosphatas e was 65, AST 40, ALT 63 (normal 9-46). On 10/03/17, his alkaline phosphatas e was 67, AST 42 (normal 10-40), ALT 82 (normal 9-46). [id number] LESA COOK MD INTERNAL MEDICINE [facility] CLOSED [address] [facility],[place] [address] 12/06/2017 09:34:05 12/06/2017 09:54:53 Obesity 747932351 E66.9 Patient lost 7 pounds since his previous visit on 11/08/17 and 24 pounds total since starting Adipex on 10/08/17. On 10/08/17, his starting weight was 299 pounds. Hyperlipidemia 25845585 E78.5 On 08/04/10, total cholestero l was [...] triglyceri mihaela 117, LDL 171. Seasonal allergy 4573185 04 J30.2 He uses Zyrtec and Flonase as needed for allergy symptoms. Liver enzy mes level above reference range 194524997 R74.8 On 06/14/17, his alkaline phosphatas e was 65, AST 40, ALT 63 (normal 9-46). On 10/03/17, his alkaline phosphatas e was 67, AST 42 (normal 10-40), ALT 82 (normal 9-46). [id number] LESA COOK MD INTERNAL MEDICINE [facility] CLOSED [address] [place] [address],[place] [address] 01/10/2018 08:28:43 01/10/2018 09:35:22 Obesity 638576004 E66.9 Patient lost 6 pounds since his previous visit on 12/06/17 and 30 pounds total since starting Adipex on 10/08/17. On 10/08/17, his starting weight was 299 pounds. Hyperlipidemia 09078965 E78.5 On 08/04/10, total cholestero l was [...] triglyceri mihaela 104, LDL 128. Seasonal allergy 1886882 04 J30.2 He uses Zyrtec and Flonase as needed for allergy symptoms. Liver enzy mes level above reference range 777489741 R74.8 On 06/14/17, his alkaline phosphatas e was 65, AST 40, ALT 63 (normal 9-46). On 10/03/17, his alkaline phosphatas e was 67, AST 42 (normal 10-40), ALT 82 (normal 9-46). On 12/28/17, his alkaline phosphatas e was 74, AST 22, ALT 36. [id number] LESA COOK MD INTERNAL MEDICINE [facility] CLOSED [address] [place] [address],[place] [address] 02/13/2018 09:34:27 02/13/2018 09:54:31 Obesity 086680956 E66.9 On 02/13/18, his starting weight was 268 pounds. Patient lost 30 pounds with Adipex from 10/08/17 to 01/10/18. On 10/08/17, his starting weight was 299 pounds. Hyperlipidemia 08547750 E78.5 On 08/04/10, total cholestero l was [...] triglyceri mihaela 104, LDL 128. Seasonal allergy 2390201 04 J30.2 He uses Zyrtec and Flonase as needed for allergy symptoms. Liver enzy mes level above reference range 822227374 R74.8 On 06/14/17, his alkaline phosphatas e was 65, AST 40, ALT 63 (normal 9-46). On 10/03/17, his alkaline phosphatas e was 67, AST 42 (normal 10-40), ALT 82 (normal 9-46). On 12/28/17, his alkaline phosphatas e was 74, AST 22, ALT 36. [id number] LESA COOK MD INTERNAL MEDICINE [facility] CLOSED [address] [place] [address],[facility] [place] [address] 03/13/2018 08:16:10 03/13/2018 08:35:35 Obesity 439042519 E66.9 Patient lost 4 pounds since starting On 02/13/18. On 02/13/18, his starting weight was 268 pounds. Patient lost 30 pounds with Adipex from 10/08/17 to 01/10/18. On 10/08/17, his starting weight was 299 pounds. Hyperlipidemia 44565027 E78.5 On 08/04/10, total cholestero l was 206, HDL 49, triglyceri mihaela 70, LDL 143. On 05/22/13, his total cholestero l was 231, HDL 43, triglyceri mihaela 126, LDL 163. On 06/04/14, total cholestero l was 186, HDL 39, triglyceri mihaela 104, LDL 126. On 06/04/14, his total cholestero l was 186, HDL 39, triglyceri mihalea 104, LDL 126. On 09/28/15, his total [...] triglyceri mihaela 104, LDL 128. Seasonal allergy 9046051 04 J30.2 He uses Zyrtec and Flonase as needed for allergy symptoms. Liver enzy mes level above reference range 728953478 R74.8 On 06/14/17, his alkaline phosphatas e was 65, AST 40, ALT 63 (normal 9-46). On 10/03/17, his alkaline phosphatas e was 67, AST 42 (normal 10-40), ALT 82 (normal 9-46). On 12/28/17, his alkaline phosphatas e was 74, AST 22, ALT 36. [id number] LESA COOK MD INTERNAL MEDICINE [facility] CLOSED [address] [facility],[place] [address] 04/10/2018 08:20:01 04/10/2018 09:01:34 Obesity 023394414 E66.9 Patient lost 9 pounds with Adipex from 02/13/18 to 04/10/18. On 02/13/18, his starting weight was 268 pounds. Patient lost 30 pounds with Adipex from 10/08/17 to 01/10/18. On 10/08/17, his starting weight was 299 pounds. Hyperlipidemia 80445385 E78.5 On 08/04/10, total cholestero l was [...] triglyceri mihaela 104, LDL 128. Seasonal allergy 1160428 04 J30.2 He uses Zyrtec and Flonase as needed for allergy symptoms. Liver enzy mes level above reference range 073639604 R74.8 On 06/14/17, his alkaline phosphatas e was 65, AST 40, ALT 63 (normal 9-46). On 10/03/17, his alkaline phosphatas e was 67, AST 42 (normal 10-40), ALT 82 (normal 9-46). On 12/28/17, his alkaline phosphatas e was 74, AST 22, ALT 36. [id number] LESA COOK MD INTERNAL MEDICINE [address] [place] [address] 01/14/2024 14:44:28 01/14/2024 15:55:00 Obesity 062517016 E66.9 Obesity: Diet, regular exercise, and weight loss were encouraged . This will continue to be monitored with serial weight measuremen t. Patient lost 9 pounds with Adipex from 02/13/18 to 04/10/18. On 02/13/18, his starting weight was 268 pounds. Patient lost 30 pounds with Adipex from 10/08/17 to 01/10/18. On 10/08/17, his starting weight was 299 pounds. Hyperlipidemia 63818797 E78.5 Hyperlipid emia: Patient prefers to manage [...] triglyceri mihaela 104, LDL 128. Seasonal allergy 3717012 04 J30.2 Seasonal allergies: Patient reports that his seasonal allergy symptoms are fairly well-contr olled with medication . Patient to continue current treatment. This will continue to be monitored symptomati eric. He uses Zyrtec and Flonase as needed for allergy symptoms. Liver enzy mes level above reference range 037317652 R74.8 Elevated LFTs: This has been mild and variable. This will continue to be monitored with serial lab work. On 06/14/17, his alkaline phosphatas e was 65, AST 40, ALT 63 (normal 9-46). On 10/03/17, his alkaline phosphatas e was 67, AST 42 (normal 10-40), ALT 82 (normal 9-46). On 12/28/17, his alkaline phosphatas e was 74, AST 22, ALT 36. [facility] 703907170 Z00.00 Dysesthesia 224484588 R2 0.8 Dysesthesi a: Patient referred for [...] an appointmen t for neurology evaluation in [place], [place], scheduled on 04/01/24, but he requested another referral to see if he could get in somewhere sooner. At that time, patient was also prescribed bupropion XL 150 mg daily for anxiety. Anxiety 55815040 F41.9 Anxiety: Patient prescribed bupropion XL. This [...] prescribed bupropion XL 150 mg daily. Insomnia 761586845 G47.0 0 Insomnia: Patient reports some benefit from trazodone in treating his insomnia. Patient to continue current treatment. This will continue to be monitored symptomati eric. Hypertensive disorder 38 534567 I10 Hypertensi on: Good control. Patient to continue current treatment. This will continue to be monitored with serial blood pressure readings. [id number] LESA COOK MD INTERNAL MEDICINE [address] [place] [address] 01/16/2024 10:26:54 01/16/2024 11:01:11 Dysesthesia 834033949 R20.8 Dysesthesi a: Patient referred for neurology [...] an appointmen t for neurology evaluation in [place], [place], scheduled on 04/01/24, but he requested another referral to see if he could get in somewhere sooner. At that time, patient was also prescribed bupropion XL 150 mg daily for anxiety. Anxiety 79970746 F41.9 Anxiety: Patient prescribed bupropion XL. This [...] prescribed bupropion XL 150 mg daily. Insomnia 419299253 G47.0 0 Insomnia: Patient reports some benefit from trazodone in treating his insomnia. Patient to continue current treatment. This will continue to be monitored symptomati eric. Hypertensive disorder 38 491150 I10 Hypertensi on: Good control. Patient to continue current treatment. This will continue to be monitored with serial blood pressure readings. Hyperlipidemia 14740116 E78.5 Hyperlipid emia: Patient prefers to manage [...] triglyceri mihaela 171, LDL 139. Seasonal allergy 0445801 04 J30.2 Seasonal allergies: Patient reports that his seasonal allergy symptoms are fairly well-contr olled with medication . Patient to continue current treatment. This will continue to be monitored symptomati eric. He uses Zyrtec and Flonase as needed for allergy symptoms. Liver enzy mes level above reference range 103551309 R74.8 Elevated LFTs: This has been mild [...] was 67, AST 30, ALT 40. Obesity 395292984 E66.9 Obesity: Diet, regular exercise, and weight loss were encouraged . This will continue to be monitored with serial weight measuremen t. Patient lost 9 pounds with Adipex from 02/13/18 to 04/10/18. On 02/13/18, his starting weight was 268 pounds. Patient lost 30 pounds with Adipex from 10/08/17 to 01/10/18. On 10/08/17, his starting weight was 299 pounds. Anemia 500549406 D64.9 Anemia: This is mild. This will continue to be monitored with serial lab work. On 10/30/23, his hemoglobin was 14.9, hematocrit 43.0, MCV 94 in the ER. On 01/14/24, his hemoglobin was 13.4 (normal 14.0-18.0) , hematocrit 39.6 (normal 40.0-52.0) , MCV 95. Exposure t o blood and/or body fluid 981858333 Z77.21 Patient referred to infectious disease for [...] it would set his mind at ease. [id number] KRYSTAL LORENZO DO NEUROLOGY [facility] CLOSED [address] [place], [place] [address] 03/17/2024 12:40:41 03/18/2024 05:19:26 Paresthesia 72416732 R20.2 Diffuse migratory paresthesi as involving mouth and extremitie s of unknown etiology. His MRI brain and neuro exam are normal.He has already had autoimmune labs that were normal.Alt joyce the clinical picture would be atypical we can schedule nerve testing on the arms and legs.Will also order some additional labs. Spasm 73180422 R25.2 He reports increasing spasms in the BLE. Nerve testing and labs to be scheduled. [id number] KRYSTAL LORENZO DO NEUROLOGY [facility] CLOSED [address] [place] [address] 04/28/2024 14:21:01 04/29/2024 05:10:12 Skin sensation disturbance 73416684 R20.9 Paresthesia 49200462 R20 .2 Diffuse migratory paresthesi as involving mouth and extremitie s of unknown etiology. His MRI brain and neuro exam are normal.He has already had autoimmune labs that were normal.Alt joyce the clinical picture would be atypical we can schedule nerve testing on the arms and legs.Will also order some additional labs. [id number] KRYSTAL LORENZO DO NEUROLOGY [facility] CLOSED [address] [place] [address] 05/13/2024 10:48:59 05/14/2024 04:27:45 Paresthesia of bilateral hands 725388664 R20.2 Skin sensa tion disturbance 87583482 R20.9 [id number] KRYSTAL LORENZO, DO NEUROLOGY [facility] CLOSED [address] [place] [address] 05/13/2024 15:21:34 05/14/2024 06:10:52 Paresthesia 51996135 R20.2 Diffuse migratory paresthesi as involving mouth [...] of any new or worsening symptoms. Spasm 75930410 R25.2 He reports increasing spasms in the BLE. No evidence of myopathy on his nerve testing. He has some mildly elevated CK which in isolation is not suggestive of a muscle disease. Bilateral carpal tunnel syndrome 5385092365 0264171 G56.03 Recent nerve testing shows b/l CTS, [...] ID Guarantor Name 03/07/2018 1 [employer] [id number] [employer] [id number] [employer] 11/02/2023 1 [facility] [employer] [id number] [employer] 01/14/2024 1 [employer] (PPO) [id number] [employer] [id number] [employer] 01/14/2024 2 [employer] (PPO) [id number] [employer] [id number] [employer] 01/15/2024 1 [facility] (O) [id number] [employer] [id number] [employer] 05/13/2024 1 [facility] [id number] [employer] [id number] [employer] 01/14/2024 1 [facility] [id number] [employer] [id number] [employer] Notes Date Note Type Note [...] effects from them. LESA COOK MD [address] [place], [address], [facility] 01/16/2024 11:17:23 03/17/2024 text/html 43 y/o [...] he also follows with a PCP in [place] that did a full lab workup for autoimmune disease. He has those results on his phone and it was all normal. He has an issue over the summer of waking up with vertigo and roaring in his ear. That will still come and go as well. He had a MRI brain done at [facility] a few weeks ago. He has the disc with him today. This imaging was normal. He was prescribed gabapentin recently by his PCP for nerve pain. He does feel he sleeps better since he took this. Before taking gabapentin he was waking up with full body tremors. KRYSTAL LORENZO, DO [address] [place], [address], [facility] 03/17/2024 15:56:47 05/13/2024 text/html Bi comes [...] he also follows with a PCP in [place] that did a full lab workup for autoimmune disease. He has those results on his phone and it was all normal. He has an issue over the summer of waking up with vertigo and roaring in his ear. That will still come and go as well. He had a MRI brain done at [facility] a few weeks ago. He has the disc with him today. This imaging was normal. He was prescribed gabapentin recently by his PCP for nerve pain. He does feel he sleeps better since he took this. Before taking gabapentin he was waking up with full body tremors. KRYSTAL LORENZO, DO [address] [place], [address], [facility] 05/13/2024 16:46:10
--- OUTSIDE RECORDS SUMMARY | 2024-10-09 07:17 | XMS_ITS | Clinical Summary ---
Author Organization [facility] Address [address] [place] [address] Care Team Providers Care Assembly Associate Name Role Phone Skip Knight MD Primary Care Provider +1- [phone] Allergies No known active allergies Medications bisoprolol [...] pelvic fract ures with disruption of pelvic coeur d'alene 08/29/2020 Overview (08/31/2020): - ORF consult - [...] SDOH Screenings 2000 UKY-Depression Screening 11/22/2021 11/22/2020 [id number] Vaccine ( season) 2023 03/14/2021, 06/24/2020, 05/27/2020 [...] this topic Medical Devices Implanted Type Area Charger Operator Device Identifier Shelf Expiration Date Model / Serial / Lot Plate Recon 3.5mm Straight 7 Hole 82mm - [id number] Implanted:Qty: 1 on 08/30/2020 at [facility] Plate Left: Hip [id number] / / Screw 3.5mm Cortex Selftap 26mm - [id number] Implanted:Qty: 1 on 08/30/2020 at [facility] Left: Hip [id number] 204.826 / / Screw 4.5mm Cortex 140mm - [id number] Implanted:Qty: 1 on 08/30/2020 by Colin Adams MD at [facility] Left: Hip [id number] 214.140 / / Screw 3.5mm Cortex Selftap 32mm - [id number] Implanted:Qty: 1 on 08/30/2020 by Colin Adams MD at [facility] Left: Hip [id number] 204.832 / / Screw 3.5mm Cortex Selftap 32mm - [id number] Implanted:Qty: 1 on 08/30/2020 by Colin Adams MD at [facility] Left: Hip [id number] 204.832 / / Screw 3.5mm Cortex Selftap 40mm - [id number] Implanted:Qty: 1 on 08/30/2020 by Colin Adams MD at [facility] Left: Hip [id number] 204.840 / / Screw 3.5mm Cortex Selftap 28mm - [id number] Implanted:Qty: 1 on 08/30/2020 by Colin Adams MD at [facility] Left: Hip [employer] [id number] 204.828 / / Screw Cortex Selftap 3.5mm 28mm - [id number] Implanted:Qty: 2 on 08/30/2020 by Colin Adams MD at [facility] Left: Hip [id number] 204.828 / / Screw 3.5mm Cortex Selftap 30mm - [id number] Implanted:Qty: 1 on 08/30/2020 by Colin Adams MD at [facility] Left: Hip [id number] 204.830 / / Screw 3.5mm Cortex Selftap 38mm - [id number] Implanted:Qty: 1 on 08/30/2020 by Colin Adams MD at [facility] Left: Hip [employer] USA-[id number] 204.838 / / Screw 3.5mm Cortex Pelvic Selftap 70mm - [id number] Implanted:Qty: 1 on 08/30/2020 by Colin Adams MD at [facility] Left: Hip [employer] USA-[id number] 204.670 / / Procedures Procedure Name Priority [...] Reactive Non Reactive 10/30/2023 2:39 AM EDT [facility] Comment:Screening for HIV 1 & 2 antibodies, and P24 antigen is NONREACTIVE. No confirmatory testing is required. Blood Venous blood specimen / Unknown Venipuncture / Unknown 10/30/2023 1:49 AM EDT 10/30/2023 1:59 AM EDT us Kurtis Baig MD LAB BLOOD ORDERABLES Final Resu lt Performing Organization Address City/[facility]/ZIP Co de Phone Number [facility] [address] [place] [address] * Hepatitis C Antibody - ED (10/30/2023 1:49 AM EDT) Hepatitis C Antibody Negative Negative 10/30/2023 2:39 AM EDT [facility] Blood Venous blood specimen / Unknown Venipuncture / Unknown 10/30/2023 1:49 AM EDT 10/30/2023 1:59 AM EDT Kurtis Baig MD LAB BLOOD ORDERABLES Final Resu lt Performing Organization Address City/[facility] Co de Phone Number [facility] [address] [place] [address] from Last 3 Months or Most Recently Relevant to Health Maintenance Insurance Advance Directives Documents on File Type Date Recorded Patient Book Solicitor Expl anation Advance Directives and Living Will 08/27/2020 1:41 PM None at this time - EN Care Teams Assembly Associate Relationship Specialty Start Date End Date Skip Knight MD [address] [place] [address] PCP - General 09/22/20
== END 2024-10-09 23:59 | disposition home or self-care (01) ==
LOC: RAD 07:14
PROVIDERS: PCP Family Medicine; Visit Provider Family Medicine
DX: K76.0 Fatty (change of) liver, not elsewhere classified (principal)
CPT/HCPCS: 76705

== ENCOUNTER → 2024-11-07 08:50 | Outpatient (CLI) | payer OTHER, SELFPAY ==
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
--- OUTSIDE RECORDS SUMMARY | 2024-10-02 13:27 | XMS_ITS ---
Author Organization [facility] Address [address] [facility] [facility] [address] [facility] [address] [place] [id number] Care Team Providers Care Traveling Electrician Name Role Phone Avinash Knight Primary Care Provider REASON FOR VISIT Test Results* Encounters Encounter Location Date Provider Diagnosis [facility] [address] [place] [id number] 10/02/2024 Avinash Knight Elevated liver enzymes R74.8 Assessments Encounter Date Diagnosis (ICD Code) Assessment Notes Treatment Notes Treatment Clinical Notes Section Notes 10/02/2024 Elevated liver enzymes (ICD-10 - R74.8) Plan Of Treatment Next Appt Details Provider Name:Avinash Sarmienot, 11/11/2024 04:00:00 PM, [address], [address], [place], [place], [id number], Progress Notes * KAIT ONEALDOB:1980 (43 yo M)Acc No.[id number]:10/02/2024 Patient: KAIT FOX CATY :1980 A ge:43 Y S ex:Male Address:[address] [facility] [place] [address] Subjective: * Chief Complaints: * T est Results* * Medical History: * Surgical History: * Hospitalization/Major Diagno stic Procedure: * Medications: Objective: * Vitals: * Physical Examination: Assessment: * Assessment: 1. E levated liver enzymes - R74.8 Plan: * Treatment: * Procedure Codes: * true * Date: Generated for Stacy ron/Keo/Vidya on: 0 11/07/2024 08:59 AM EDT
--- OUTSIDE RECORDS SUMMARY | 2024-11-07 09:00 | XMS_ITS | Clinical Summary ---
Author Organization [employer] ([place], [place], [place], [place]) Address [address] [place] [address] Care Team Providers Care Senior Market Research Analyst Name Role Phone Skip Knight MD Primary Care Provider +1- [phone] Allergies No known active allergies Medications bisoprolol [...] Date Feroz rded Speak language other than Mongolian at home Not on file 04/06/2023 Want help with school or training Not on file 04/06/2023 Substance Use Answer Date Recorded Used prescription meds for non-medical reasons N ot on file 04/06/2023 Used illegal drugs past 12 months Not on file 04/06/2023 Sex and Gender Information Value Date Recorded Sex Assigned at Not on file Legal 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
--- OUTSIDE RECORDS SUMMARY | 2024-11-07 09:00 | XMS_ITS | Encounter Summary ---
Author Organization Healthcare Address [address] [place] [address] Care Team Providers Care Art Critic Name Role Phone Skip Knight MD Primary Care Provider +1- [phone] Reason for Visit * Reason Onset Date Comments Med Refill 09/29/2020 Encounter Details Date Type Department Care Team (Late st Contact Info) Description 09/29/2020 [facility]ill [facility] [address] [place] [address] Colin Adams MD [address] [place] [address] Social History Tobacco Use Types [...] for additional refills. * Telephone Encounter - Dayna Arreola - 09/29/2020 4:13 PM EDT Medication Refill Request Medication Name & Dosage: Pt's is calling concerning a renewal for Gabapentin. She stated it was supposed to be increased but hasn't been called in yet. Preferred Pharmacy & Location: [facility] Days of medication remaining (if under 3 days please manuelito as urgent): Best contact number and optimal time of day to reach caller: Additional comments/information from caller: [phone] Note: Please do not reply to this message. Follow-up communication and further actions as a result of this message need to be communicated with the patient directly, if the patient is not active onMyChart. If the patient is active on MyChart, they will receive notification of the communication/outcome via [employer]. documented in this encounter Plan of Treatment Not on file documented as of this encounter Visit Diagnoses Not on filedocumented in this encounter Additional Health Concerns Assessment Noted Time A fall risk assessment has been complete d for the patient 09/22/2020 9:59 AM EDT documented as of this encounter Care Teams Art Critic Relationship Specialty Start Date End Date Skip Knight MD [address] [place] [address] PCP - General 09/22/20 documented as of this encounter
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
== END ==
LOC: SL 08:52
PROVIDERS: PCP Family Medicine; Visit Provider Family Medicine
DX: G47.33 Obstructive sleep apnea (adult) (pediatric) (principal); G47.36 Sleep related hypoventilation in conditions classified elsewhere; I10 Essential (primary) hypertension; E66.9 Obesity, unspecified
CPT/HCPCS: 95806